=== PATIENT | female | born 1955 | race Caucasian/White ===

== ENCOUNTER 2016-08-09 05:37 | Outpatient (CLI) | payer MEDICARE ==
[~2016-08-09] VITALS: Ht 160 cm; Wt 70.7 kg
[2016-08-09] MEDS ORDERED: FENOFIBRATE160 MG (06:12)
[2016-08-09] MEDS ORDERED: CYCLOBENZAPRINE10 MG (06:12)
[2016-08-09] MEDS ORDERED: METOPROLOL TART50 MG PO (06:13)
[2016-08-09] MEDS ORDERED: SYNTHROID75 MCG (06:13)
[2016-08-09] MEDS ORDERED: FLOVENT DI50 MCG/DIS (06:13)
[2016-08-09] MEDS ORDERED: PRINIVIL20 MG (06:13)
[2016-08-09] MEDS ORDERED: PROAIR HFA8.5 GM (06:14)
[2016-08-09] MEDS ORDERED: OMEPRAZOLE20 M1 (06:14)
[2016-08-09] MEDS ORDERED: ZOCOR40 MG (06:14)
[2016-08-09] MEDS ORDERED: OMEPRAZOLE40 MG PO (06:14)
[2016-08-09] MEDS ORDERED: VENTOLIN HFA18 GM (06:15)
[2016-08-09] MEDS ORDERED: COUMADIN5 MG (06:15)
[2016-08-09] MEDS ORDERED: AMBIEN10 MG (06:15)
[2016-08-09] MEDS ORDERED: ULTRAM50 MG (06:15)
[2016-08-09 06:54] LABS: BASOPHILS 0.3 % (0.0-2.0); EOSINOPHILS 1.2 % (0-7); HEMATOCRIT 38.3 % (36.0-48.0); HEMOGLOBIN 12.4 g/dL (12-16); IMMATURE GRANULOCYTES 0.4 % (0-5); LYMPHOCYTES 36.1 % (15-50); MCH 29.9 pg (26.0-34.0); MCHC 32.4 g/dL (31.0-37.0); MCV 92.3 fL (80.0-100.0); MEAN PLATELET VOLUME 10.8 fL (7.4-10.4); MONOCYTES 10.1 % (2-11); NEUTROPHILS 51.9 % (40-80); PLATELET COUNT 288 10x3/uL (130-400); RBC 4.15 10x6/uL (4.00-5.40); RDW 14.4 % (11.5-14.5); WBC 7.3 10x3/uL (4.8-10.8)
[2016-08-09 07:03] LABS: ANION GAP 14.3 mmol/L (8-16); CALCIUM 9.8 mg/dL (8.5-10.1); CARBON DIOXIDE 24.5 mmol/L (21.0-32.0); POTASSIUM - SERUM 3.8 mmol/L (3.5-5.1)
[2016-08-09 07:13] VITALS: BP 119/69; Ht 160 cm; Wt 70.7 kg
[2016-08-09 07:25] LABS: APTT 35.8 SECONDS (22.8-39.4); INR 1.29 (0.85-1.17)
--- NOTE | 2016-08-09 07:45 | NUR ---
0744 ABNORMAL PT-16.0 INR-1.29 CALLED TO Velasquez GLASS R.N.
--- NOTE | 2016-08-09 10:21 | NUR ---
1020 C/O PAIN ON INSPIRATION. RATED 10. PAIN MED GIVEN
--- NOTE | 2016-08-09 11:06 | NUR ---
1100 CXR TAKEN; PAIN RATED 3
--- NOTE | 2016-08-09 12:50 | NUR ---
1250 CXR REPORT RECEIVED; NO PNEUMO PATIENT GETTING DRESSED
--- NOTE | 2016-08-09 13:12 | NUR ---
1300 DISCHARGE INSTRUCTIONS REVIEWED WITH PATIENT; VERBALIZED UNDERSTANDING
== END 2016-08-09 13:00 | disposition home or self-care (01) ==
LOC: D.OPS 05:37 → D.CT 08:00 → D.OPS 13:00
PROVIDERS: Radiology Diagnostic Radiology
DX: C38.3 Malignant neoplasm of mediastinum, part unspecified (principal)

== ENCOUNTER → 2016-08-23 16:39 | Outpatient (CLI) | payer MEDICARE ==
[2016-08-09 07:13] VITALS: BMI 27.6
[~2016-08-23 16:39] MED LIST: AMBIEN10 MG; BACTRIM DS TABL1 TAB PO; COUMADIN5 MG; CYCLOBENZAPRINE10 MG; FENOFIBRATE160 MG; FLOVENT DI50 MCG/DIS; HYDROCODON-ACE1 EAC7 PO; METOPROLOL TART50 MG PO; OMEPRAZOLE20 M1; OMEPRAZOLE40 MG PO; PRINIVIL20 MG; PROAIR HFA8.5 GM; SYNTHROID75 MCG; ULTRAM50 MG; VENTOLIN HFA18 GM; ZOCOR40 MG
== END | disposition home or self-care (01) ==
LOC: D.MAMMO 08:45
DX: N63 Unspecified lump in breast (principal)

== ENCOUNTER 2016-09-27 09:31 | Day surgery (SDC) | payer MEDICARE ==
[~2016-09-27] VITALS: Ht 160 cm; Wt 70.8 kg
[~2016-09-27 09:31] MED LIST changes: -BACTRIM DS TABL1 TAB PO; -HYDROCODON-ACE1 EAC7 PO
[2016-09-27 10:38] LABS: BASOPHILS 0.4 % (0.0-2.0); EOSINOPHILS 1.3 % (0-7); IMMATURE GRANULOCYTES 0.5 % (0-5); LYMPHOCYTES 30.3 % (15-50); MCH 28.7 pg (26.0-34.0); MCHC 31.6 g/dL (31.0-37.0); MCV 90.9 fL (80.0-100.0); MEAN PLATELET VOLUME 10.4 fL (7.4-10.4); MONOCYTES 9.1 % (2-11); NEUTROPHILS 58.4 % (40-80); RBC 4.18 10x6/uL (4.00-5.40); RDW 15.3 % (11.5-14.5); WBC 10.8 10x3/uL (4.8-10.8)
[2016-09-27 10:50] LABS: APTT 32.7 SECONDS (22.8-39.4); INR 1.16 (0.85-1.17); PROTIME 14.7 SECONDS (11.6-15.0)
[2016-09-27 11:10] LABS: PLATELET COUNT 363 10x3/uL (130-400)
[2016-09-27 11:16] LABS: ANION GAP 14.6 mmol/L (8-16); CALCIUM 9.6 mg/dL (8.5-10.1); CARBON DIOXIDE 24.9 mmol/L (21.0-32.0); CREATININE - SERUM 0.9 mg/dL (0.6-1.3); POTASSIUM - SERUM 4.5 mmol/L (3.5-5.1)
[2016-09-27 11:53] VITALS: BP 94/64; Ht 160 cm; Wt 70.8 kg
--- NOTE | 2016-09-27 14:56 | NUR ---
KAYLI OUT AT 1450, ZARA IN AT 1445
[2016-09-27] MEDS ORDERED: BACTRIM DS TABL1 TAB PO (15:55)
[2016-09-27] MEDS ORDERED: HYDROCODON-ACE1 EAC7 PO (15:55)
--- NOTE | 2016-09-27 17:30 | NUR ---
AMBULATES TO BATHROOM AND VOIDS LARGE AMOUNT IN TOILET. RIGHT HAND PIV DC'D WITH TIP INTACT, DRESSING IN PERSONAL CLOTHING
--- NOTE | 2016-09-27 17:50 | NUR ---
DISCHARGE INSTRUCTIONS REVIEWED WITH PATIENT. DISCHARGED HOME VIA WHEELCHAIR TO PRIVATE VEHICLE WITH FRIEND
--- NOTE | 2016-09-27 21:24 | OP ---
PATIENT NAME: EDGAR NEGRON MEDICAL RECORD: [id number] :57 LOCATION:D.OPS ADMISSION DATE: SURGEON: GABE HOUSER MD DATE OF OPERATION: 09/27/2016 SURGEON: Gabe Houser MD PREOPERATIVE DIAGNOSES: 1. Lung cancer. 2. Mediastinal mass. 3. Supraclavicular mass. POSTOPERATIVE DIAGNOSES: 1. Lung cancer. 2. Mediastinal mass. 3. Supraclavicular mass. PROCEDURE PERFORMED: 1. Insertion of a tunneled left subclavian PowerPort with subcutaneous port. 2. Immediate interpretation of fluoroscopy. 3. Right supraclavicular incisional biopsy. 4. Core needle biopsy of right supraclavicular mass. ANESTHESIA: General. COMPLICATIONS: None. SPECIMENS: Right supraclavicular incisional biopsy. ESTIMATED BLOOD LOSS: 30 cc. COMPLICATIONS: None. Case was clean. OPERATIVE COURSE: After consent was obtained, the patient was taken to the operating room and placed in supine position on the operating table. Next, general anesthesia was given via endotracheal intubation. After a timeout was performed that confirmed the correct patient and procedure, the right and left chest and neck were prepped and draped in typical sterile fashion. A 20 cc of local anesthetic were injected in the left chest wall. External landmarks were identified. The left subclavian vein was cannulated on the first pass. Under fluoroscopy, a guidewire was placed in the needle and advance to the atriocaval junction. The needle was removed. The skin incision was then made with a 15 blade scalpel. Dissection continued to the level of the pectoralis fascia using electrocautery. Next, the dilator and breakaway sheath were passed over the wire in a standard Seldinger fashion under direct fluoroscopy. The dilator and wire were removed. The catheter was advanced through the breakaway sheath and advanced to the atriocaval junction under direct fluoroscopic guidance. This time, the breakaway sheath was removed. The port was secured to the pectoralis fascia using interrupted 2-0 Prolene suture. The port was accessed, but was aspirated and flushed with 30 cc of saline, next with 5000 units of heparin. The wound was closed in several layers. The tissue was closed with 3-0 Vicryl, superficial layer was closed with 3-0 Vicryl. The skin was closed with 4-0 Monocryl, Mastisol and Steri-Strips. At this time, the wound was covered with sterile Tegaderm dressings. An incision was made over the large supraclavicular OPERATIVE REPORT [id number] EDGAR NEGRON mass. The right was easily palpable and local anesthetic was injected. An incision was made over the mass. Dissection continued down the level to the subcutaneous tissue with electrocautery. The strap muscles were identified. The mass was posterior to the strap muscles. The mass was unable to be circumferentially dissected, it was densely adherent to all surrounding tissues. Once we gained adequate exposure of the anterior surface of the mass and incisional biopsy was taken, which is approximately 3 cm in length, but 3 cm in width and 3 cm in depth. It was sent for both frozen section and permanent pathology. Initial report was of metastatic origin nonsmall cell lung CA ____ squamous features. At this time, multiple core needle biopsies were taken of the mass and sent for permanent pathology. Adequate hemostasis was obtained with electrocautery and Frankie. The wound was closed in multiple layers again deep layer was closed with 3-0 Vicryl sutures, superficial layer was closed with 3-0 Vicryl suture. The skin was closed with 4-0 nylon. At the end of the case, all needle and instrument counts were correct. No complications occurred. The patient was extubated and transferred to the PACU in stable condition. TRANSINT:[id number] Voice Confirmation ID: [id number] DOCUMENT ID: [id number] GABE HOUSER MD at 2124 CC: [id number] DICTATION DATE: 09/27/16 155 PLAQUE MAKER: 09/27/162020 [facility] 09/27/16 [place] [id number] [place] [id number]
== END 2016-09-27 17:50 | disposition home or self-care (01) ==
LOC: D.OPS 09:31
PROVIDERS: Anesthesiology
DX: C34.90 Malignant neoplasm of unspecified part of unspecified bronchus or lung (principal); C77.0 Secondary and unspecified malignant neoplasm of lymph nodes of head, face and neck

== ENCOUNTER 2016-11-18 07:54 | Emergency (ER) | payer MEDICARE ==
[2016-09-27 11:53] VITALS: BMI 27.6
[~2016-11-18 07:54] MED LIST changes: +BACTRIM DS TABL1 TAB PO; +HYDROCODON-ACE1 EAC7 PO
[2016-11-18 08:29] LABS: BASOPHILS 0.9 % (0-2); EOSINOPHILS 1.5 % (0-7); HEMATOCRIT 30.5 % (36.0-48.0); HEMOGLOBIN 9.5 g/dL (12-16); IMMATURE GRANULOCYTES 0.2 % (0-5); LYMPHOCYTES 35.9 % (15-50); MCH 27.5 pg (26.0-34.0); MCHC 31.1 g/dL (31.0-37.0); MCV 88.4 fL (80.0-100.0); MEAN PLATELET VOLUME 10.8 fL (7.4-10.4); MONOCYTES 13.6 % (2-11); NEUTROPHILS 47.9 % (40-80); PLATELET COUNT 388 10x3/uL (130-400); RBC 3.45 10x6/uL (4.00-5.40); RDW 17.1 % (11.5-14.5); WBC 9.3 10x3/uL (4.8-10.8)
[2016-11-18 08:45] LABS: ALBUMIN 2.2 g/dL (3.4-5.0); ANION GAP 16.9 mmol/L (8-16); BILIRUBIN - TOTAL 0.48 mg/dL (0.2-1.3); CALCIUM 9.7 mg/dL (8.5-10.1); CARBON DIOXIDE 26.3 mmol/L (21.0-32.0); CREATININE - SERUM 0.9 mg/dL (0.6-1.3); POTASSIUM - SERUM 3.2 mmol/L (3.5-5.1); PROTEIN - SERUM 8.6 g/dL (6.4-8.2)
[2016-11-18 08:48] LABS: TROPONIN-I 0.04 ng/mL (0.000-0.060)
== END 2016-11-18 11:21 | disposition home or self-care (01) ==
LOC: D.ER 07:54
PROVIDERS: Emergency Medicine
DX: J44.1 Chronic obstructive pulmonary disease with (acute) exacerbation (principal); C34.90 Malignant neoplasm of unspecified part of unspecified bronchus or lung; I10 Essential (primary) hypertension; E03.9 Hypothyroidism, unspecified; R00.0 Tachycardia, unspecified

== ENCOUNTER 2016-11-23 10:58 | Inpatient (IN) | payer MEDICARE ==
[~2016-11-23] VITALS: Ht 160 cm; Wt 58.4 kg
--- NOTE | ~2016-11-23 | CN ---
PATIENT NAME:EDGAR HOUGH MEDICAL RECORD: [id number] : 57 LOCATION:D.MS [id number] ADMIT DATE: 11/23/16 ACCOUNT: [id number] CONSULTING PHYSICIAN: SARA WELSL MD REFERRING PHYSICIAN: RONALD LUU MD DATE OF CONSULTATION: 11/24/2016 CONSULT REQUESTING PHYSICIAN: Ronald Luu MD. REASON FOR CONSULTATION: Dyspnea, COPD exacerbation and hemoptysis. HISTORY OF PRESENT ILLNESS: Ms. Hough is a 61-year-old female who was diagnosed in August with a stage III nonsmall cell carcinoma of the lung. She is getting chemotherapy by Dr. Dubois. According to the patient, for the last few days, she is sick and she has shortness of breath with mild exertion. She was also feverish. She also did have blood-tinged sputum for the last 1 month. It is not getting any worse. Sometimes it is pinkish, sometimes it is fresh blood noted on the tissue paper. Denies any chest pain. REVIEW OF SYSTEMS: Mainly in the history of present illness. PAST MEDICAL HISTORY: 1. COPD. 2. Stage III nonsmall cell carcinoma of the lung. 3. Gastroesophageal reflux disease. 4. History of Chu's Palsy. 5. Hypothyroidism. 6. History of pneumonia. 7. History of angina. PAST SURGICAL HISTORY: 1. She has a lung biopsy. 2. She has a Laser and LEEP surgery. ALLERGIES: There are no known drug allergies. PRESENT MEDICATIONS: [employer] was reviewed. PERSONAL AND SOCIAL HISTORY: The patient still an everyday smoker. She is a nondrinker. FAMILY HISTORY: Significant for cardiovascular disease and diabetes. PHYSICAL EXAMINATION: GENERAL: The patient is now lying comfortably. She is not in acute distress. VITAL SIGNS: The blood pressure is 113/56, pulse is 111, respirations 18, temperature is 98.8 and SpO2 is 96% on 2 liters nasal cannula. HEENT: Conjunctivae pink, sclerae nonicteric. NECK: Supple, no JVD. CHEST: There is prolonged expiration with wheezing. HEART: Rhythm regular, normal sound, no murmur. ABDOMEN: Soft, bowel sounds present. No hepatosplenomegaly. RECTAL: Deferred. EXTREMITIES: No cyanosis, no clubbing and no pedal edema. SKIN: Warm, normal turgor. CONSULT REPORT [id number] EDGAR HOUGH CENTRAL NERVOUS SYSTEM: The patient is awake and alert. There are no obvious cranial nerve abnormality. The gait was not tested. IMAGING DATA: Chest radiograph, there is fullness in the right paratracheal region, which is unchanged compared to the chest x-ray on November 13, there is no infiltrate. LABORATORY DATA: CBC: The WBC is 13.9, hemoglobin 9.7 and hematocrit 31. The repeat hematocrit is 24.9. Chemistry: Sodium 138, potassium 3.1, BUN is 12 and creatinine 0.8. IMPRESSION: 1. Acute exacerbation of chronic obstructive pulmonary disease. 2. Tracheobronchitis. 3. Hemoptysis, most likely secondary to cancer of the lung with associated tracheobronchitis, less likely vasculitis. 4. Stage IIIA nonsmall cell carcinoma of the lung. 5. Anemia. 6. Hypokalemia. 7. Tobacco dependence syndrome. 8. Gastroesophageal reflux disease. RECOMMENDATION: 1. Start her on Xopenex and ipratropium nebulizer. Add Brovana and budesonide nebulizer. Start methylprednisolone IV. Continue Levaquin. Racemic epinephrine nebulizer q.4 hourly p.r.n. 2. Mucinex DM and Tessalon Perles. 3. Followup labs and chest radiograph in the morning. Dr. Luu, thank you for involving me in the care of Ms. Hough. Agree with the blood transfusion. TRANSINT:[id number] Voice Confirmation ID: [id number] DOCUMENT ID: [id number] SARA WELLS MD CC: [id number] DICTATION DATE: 11/24/16 161 REPLANTING MACHINE CREWMAN: 11/25/16 0015 ADM IN [place] [id number] [place] [address]
[~2016-11-23 10:58] MED LIST changes: -AMBIEN10 MG; +AMBIEN10 MG PO; -COUMADIN5 MG; +COUMADIN5 MG PO; -CYCLOBENZAPRINE10 MG; +CYCLOBENZAPRINE10 MG PO; -FENOFIBRATE160 MG; +FENOFIBRATE160 MG PO; -OMEPRAZOLE20 M1; +OMEPRAZOLE20 M1 PO; -PRINIVIL20 MG; +PRINIVIL20 MG PO; -PROAIR HFA8.5 GM; +PROAIR HFA8.5 GM INH; -SYNTHROID75 MCG; +SYNTHROID75 MCG PO; -ULTRAM50 MG; +ULTRAM50 MG PO; -ZOCOR40 MG; +ZOCOR40 MG PO
[2016-11-23 11:44] LABS: BASOPHILS 0.1 % (0-2); EOSINOPHILS 0.3 % (0-7); HEMOGLOBIN 9.7 g/dL (12-16); IMMATURE GRANULOCYTES 0.3 % (0-5); LYMPHOCYTES 15.9 % (15-50); MCH 28.1 pg (26.0-34.0); MCHC 31.3 g/dL (31.0-37.0); MCV 89.9 fL (80.0-100.0); MEAN PLATELET VOLUME 9.7 fL (7.4-10.4); MONOCYTES 8.1 % (2-11); NEUTROPHILS 75.3 % (40-80); RBC 3.45 10x6/uL (4.00-5.40); RDW 18.6 % (11.5-14.5); WBC 13.9 10x3/uL (4.8-10.8)
[2016-11-23 11:54] LABS: PLATELET COUNT 309 10x3/uL (130-400)
[2016-11-23 12:01] LABS: ALBUMIN 2.2 g/dL (3.4-5.0); ANION GAP 13.7 mmol/L (8-16); BILIRUBIN - TOTAL 0.51 mg/dL (0.2-1.3); CALCIUM 9.6 mg/dL (8.5-10.1); CARBON DIOXIDE 28.3 mmol/L (21.0-32.0); CREATININE - SERUM 0.9 mg/dL (0.6-1.3); PROTEIN - SERUM 8.5 g/dL (6.4-8.2)
[2016-11-23 12:33] LABS: APTT 58.3 SECONDS (22.8-39.4); INR 2.69 (0.85-1.17); PROTIME 28.8 SECONDS (11.6-15.0)
[2016-11-23 15:33] LABS: APPEARANCE CLEAR (CLEAR); BILIRUBIN NEGATIVE (NEGATIVE); COLOR YELLOW (YELLOW); GLUCOSE NEGATIVE (NEGATIVE); KETONE NEGATIVE (NEGATIVE); LEUKOCYTE ESTERASE TRACE (NEGATIVE); NITRITE NEGATIVE (NEGATIVE); PROTEIN TRACE mg/dL (NEGATIVE); UROBILINOGEN NORMAL (NORMAL)
[2016-11-23 15:35] LABS: BACTERIA FEW /hpf (NONE SEEN); EPITHELIAL CELLS 0-5 /hpf (0-5); RED CELLS - URINE 0-5 /hpf (0-5); WHITE CELLS - URINE 0-5 /hpf (0-5)
[2016-11-23 17:01] LABS: CKMB 6.9 U/L (0.0-3.6); CREATINE KINASE 50 UL (21-215)
[2016-11-23 17:02] LABS: TROPONIN-I 0.074 ng/mL (0.000-0.060)
[2016-11-23] MEDS ORDERED: HYSINGLA ER20 MG PO (17:56)
[2016-11-23] MEDS ORDERED: PULMICORT0.5 MG/21 INH (18:01)
[2016-11-23] MEDS ORDERED: FUROSEMIDE20 MG PO (18:05)
[2016-11-23] MEDS ORDERED: CELEXA10 MG PO (18:05)
[2016-11-23] MEDS ORDERED: PHENERGAN25 M1 PO (18:06)
[2016-11-23] MEDS ORDERED: ZOFRAN4 MG PO (18:06)
[2016-11-23 18:08] VITALS: BP 115/67; BMI 24.3
[2016-11-23 19:00] VITALS: BP 121/66
[2016-11-23 22:33] LABS: CKMB 8.2 U/L (0.0-3.6); CREATINE KINASE 50 UL (21-215)
[2016-11-23 22:35] LABS: TROPONIN-I 0.081 ng/mL (0.000-0.060)
[2016-11-24] VITALS (14 sets, daily range): BP systolic 94–177; BP diastolic 55–100; Ht 160 cm; Wt 58.4 kg
--- NOTE | 2016-11-24 00:31 | NUR ---
2000)DR CALDERON HERE. NO NEW ORDERS REC'D.GROSSLY CONGESTED UPPER AIRWAY WITH CRACKLES. SYAYES DON'T CLOSE MY DOOR I COULD BE LYING IN HERE BECAUSE IT TAKES YALL 3 HOURS TO ANSWER A CALL LITE.
--- NOTE | 2016-11-24 02:00 | NUR ---
PT IN BED WITH NO DISTRESS. RESPIRATIONS EVEN AND UNLABORED. SIDE RAILS UP X 2. BED IS IN LOWEST POSITION. CALL LIGHT IS WITHIN REACH.
[2016-11-24 05:09] LABS: BASOPHILS 0.2 % (0-2); EOSINOPHILS 1.9 % (0-7); HEMATOCRIT 24.9 % (36.0-48.0); IMMATURE GRANULOCYTES 0.3 % (0-5); MCH 27.9 pg (26.0-34.0); MCHC 30.5 g/dL (31.0-37.0); MCV 91.5 fL (80.0-100.0); MEAN PLATELET VOLUME 10.4 fL (7.4-10.4); MONOCYTES 7.8 % (2-11); NEUTROPHILS 66.8 % (40-80); PLATELET COUNT 251 10x3/uL (130-400); RDW 18.4 % (11.5-14.5)
[2016-11-24 05:18] LABS: HEMOGLOBIN 7.6 g/dL (12-16); RBC 2.72 10x6/uL (4.00-5.40); WBC 9.9 10x3/uL (4.8-10.8)
[2016-11-24 05:20] LABS: INR 3.45 (0.85-1.17); PROTIME 35.1 SECONDS (11.6-15.0)
[2016-11-24 05:41] LABS: ALBUMIN 1.6 g/dL (3.4-5.0); ALKALINE PHOSPHATASE 114 U/L (46-116); ALT (SGPT) 10 U/L (10-68); CALC OSMOLALITY 275 mosm/kg (275-300); CALCIUM 8.6 mg/dL (8.5-10.1); CARBON DIOXIDE 26.5 mmol/L (21.0-32.0); CHLORIDE - SERUM 103 mmol/L (98-107); CKMB 6.2 U/L (0.0-3.6); CREATINE KINASE 39 UL (21-215); CREATININE - SERUM 0.8 mg/dL (0.6-1.3); GLUCOSE 92 mg/dL (74-106); POTASSIUM - SERUM 3.1 mmol/L (3.5-5.1); PROTEIN - SERUM 6.4 g/dL (6.4-8.2); SODIUM 138 mmol/L (136-145); UREA NITROGEN 12 mg/dL (7-18); eGFR NON AFRICAN AMERICAN 77 mL/min (90-120)
--- NOTE | 2016-11-24 07:38 | NUR ---
SLEEPING AT THIS TIME WITH RESPIRATIONS EVEN AND NON LABORED. DOOR OPEN PER PT'S REQUEST. CALL LIGHT IN REACH. BED IN LOWEST POSITION WITH WHEELS LOCKED AND SRX2. WILL CONTINUE WITH PLAN OF CARE.
--- NOTE | 2016-11-24 09:34 | NUR ---
SCHEDULED MEDICATIONS ADMINISTERED AT THIS TIME. ASSESSMENT PERFORMED PER FLOWSHEET. NOTIFIED KYMBERLYJENNIFER OF PT'S LUNG SOUNDS SO THAT SHE COULD ASSESS PT AND NEED FOR LASIX. CALL LIGHT IN REACH. WILL CONTINUE WITH PLAN OF CARE. REMAINS NPO FOR CTA OF THE CHEST. OXYGEN ON 2L VIA NC.
--- NOTE | 2016-11-24 10:21 | NUR ---
Patient Name: EDGAR NEGRON Admission Status: ER Accout number: [id number] Admission Date: 11-23-2016 : 1955 Admission Diagnosis: Attending: KELLI Current LOS: 1 Anticipated DC Date: 11-29-2016 Planned Disposition: Home with Home Health Primary Insurance: MEDICARE A & B Discharge Planning Comments: CM MET WITH PATIENT REGARDING D/C NEEDS AND PLANS. PATIENT STATED HER FRIEND (ABE) WILL DRIVE HER HOME AT DISCHARGE. PATIENT STATED THERE ARE 3 STEPS TO ENTER HER HOME AND NO STAIRS INSIDE. PATIENT STATED SHE HAS BEEN INDEPENDENT WITH HER CARE AND HAS A WALKER, CANE, PORTABLE O2, NEBULIZER AND O2 24/7 AT 2L. PATI[facility] PATIENTS PCP IS DR. MCCLELLAND IN [facility] AND USES [facility] FOR HER PHARMACY. PATIENT SIGNED THE [facility]NE FORM FOR [facility] WHEN DISCHARGED. CM WILL CONTINUE TO FOLLOW PATIENT WITH D/C NEEDS AND PLANS. PCP DR. MCCLELLAND [facility] - [phone] ABE FORTE (FRIEND) [phone] Used [employer] Yard Worker: Shannan Motta Is the patient Alert and Oriented? Yes 0 * How many steps to enter\exit or inside your home? 3 W/RAILS 0 * PCP DR. MCCLELLAND IN [facility] 0 * Pharmacy [facility] 0 * Preadmission Environment Home Alone 0 * ADLs Independent 0 * Equipment Cane Nebulizer Oxygen Walker 0 * Other Equipment PORTABLE O2 0 * List name and contact numbers for known caregivers / representatives who currently or will assist patient after discharge: ABE FORTE (FRIEND) [phone] 0 * Community resources currently utilized None 0 * Additional services required to return to the preadmission environment? Yes 0 * Can the patient safely return to the preadmission environment? Yes 0 * Has this patient been hospitalized within the prior 30 days at any hospital? No 0 Grand Total: 0
--- NOTE | 2016-11-24 12:30 | NUR ---
LEFT CHEST PORT ACCESSED WITH 20G 1 INCH MELGAR NEEDLE X1 ATTEMPT IN STERILE FASHION. PT TOLERATED WITHOUT COMPLAINTS. CALL LIGHT IN REACH, WILL CONTINUE WITH PLAN OF CARE.
--- NOTE | 2016-11-24 13:45 | NUR ---
FIRST UNIT OF PRBC'S INITIATED AT THIS TIME AT 50ML/HR. VITAL SIGNS INITIATED PER PROTOCOL. FAMILY AT BEDSIDE. WILL CONTINUE TO MONITOR PT CLOSELY.
--- NOTE | 2016-11-24 16:45 | NUR ---
BLOOD TRANSFUSION COMPLETE AT THIS TIME WITH TOTAL OF 355 ML OF INFUSED BLOOD TOTAL. VITAL SIGNS REMAIN STABLE WITH PT TACHYCARDIC AT 105. DENIES NEEDS. LUNG SOUNDS WET AND AUDIBLE WITHOUT A STETHESCOPE. OXYGEN ON 3L VIA NC WITH SATURATION 95%. WILL ADMINISTER LASIX IN BETWEEN UNITS PRESCRIBED. CALL LIGHT IN REACH. WILL CONTINUE WITH PLAN OF CARE.
--- NOTE | 2016-11-24 17:17 | NUR ---
20MG OF LASIX GIVEN PER ORDER AFTER FIRST UNIT OF PRBC'S PER DR CALDERON'S ORDER. LEFT CHEST PORT REMAINS PATENT. PT DENIES NEEDS AT THIS TIME. CALL LIGHT IN REACH, WILL CONTINUE WITH PLAN OF CARE.
--- NOTE | 2016-11-24 19:30 | NUR ---
REC'D PATIENT LYING IN BED. ALERT AND ORIENTED X4. NO DISTRESS NOTED. DENIED PAIN AT THIS TIME. DENIED FUTHER NEEDS. WILL ADMINISTER PM MEDS PRESCRIBED. INSTRUCTED TO CALL IF NEEDED ANYTHING. BED LOW, LOCKED CALL LIGHT IN REACH.
--- NOTE | 2016-11-24 22:00 | NUR ---
STARTED PATIENT'S BLOOD TRANSFUSION. PATIENT IS TOLERATING WELL. VITALS STABLE. PATIENT'S BED IN THE LOWEST POSITION AND CALL LIGHT WITHIN REACH. ENCOURAGED THE PATIENT TO CALL IF SHE HAS FURTHER NEEDS.
--- NOTE | 2016-11-24 22:17 | NUR ---
WENT TO LAB AND GOT OTHER UNIT OF BLOOD TO HANG. HILDA WILKES, HUNG BLOOD AND IS CURRENTLY TRANSFUSING. WILL CONT TO MONITOR THROUGHOUT THE NIGHT. NO DISTRESS NOTED. INSTRUCTED TO CALL IF NEEDED ANYTHING. BED LOW, LOCKED, CALL LIGHT IN REACH.
[2016-11-25] VITALS (12 sets, daily range): BP systolic 126–181; BP diastolic 70–96
--- NOTE | 2016-11-25 03:50 | NUR ---
PATIENT IS ASLEEP. NO DISTRESS NOTED. WILL CONT TO MONITOR THROUGHOUT THE NIGHT. BED LOW, LOCKED CALL LIGHT IN REACH.
[2016-11-25 05:39] LABS: BASOPHILS 0 % (0-2); EOSINOPHILS 0.1 % (0-7); IMMATURE GRANULOCYTES 0.7 % (0-5); LYMPHOCYTES 9.5 % (15-50); MCH 28.5 pg (26.0-34.0); MCHC 32.1 g/dL (31.0-37.0); MEAN PLATELET VOLUME 10.5 fL (7.4-10.4); MONOCYTES 1.2 % (2-11); NEUTROPHILS 88.5 % (40-80); PLATELET COUNT 281 10x3/uL (130-400); RDW 16.6 % (11.5-14.5); WBC 10.8 10x3/uL (4.8-10.8)
[2016-11-25 05:42] LABS: HEMOGLOBIN 10.9 g/dL (12-16); RBC 3.82 10x6/uL (4.00-5.40)
[2016-11-25 05:45] LABS: INR 2.48 (0.85-1.17); PROTIME 26.9 SECONDS (11.6-15.0)
[2016-11-25 05:52] LABS: ALBUMIN 1.9 g/dL (3.4-5.0); ALKALINE PHOSPHATASE 150 U/L (46-116); BILIRUBIN - TOTAL 0.56 mg/dL (0.2-1.3); CALCIUM 9.5 mg/dL (8.5-10.1); CARBON DIOXIDE 28.6 mmol/L (21.0-32.0); CHLORIDE - SERUM 101 mmol/L (98-107); CREATININE - SERUM 0.8 mg/dL (0.6-1.3); POTASSIUM - SERUM 3.6 mmol/L (3.5-5.1); PROTEIN - SERUM 7.7 g/dL (6.4-8.2); SODIUM 137 mmol/L (136-145); UREA NITROGEN 13 mg/dL (7-18); eGFR NON AFRICAN AMERICAN 77 mL/min (90-120)
[2016-11-25 05:54] LABS: ALT (SGPT) 13 U/L (10-68); CALC OSMOLALITY 277 mosm/kg (275-300); GLUCOSE 168 mg/dL (74-106)
--- NOTE | 2016-11-25 07:55 | NUR ---
AWAKE AND ALERT. ORIENTED X3. NO C/O AT THIS TIME. LUNGS HAVE CRACKLES AND WHEEZES THROUGHOUT. PATIENT REPORTS OCCASSIONALLY PRODUCTIVE COUGH. SKIN IS INTACT WITHOUT REDNESS. SL TO RIGHT FOREARM IS PATENT WITHOUT REDNESS AT INSERTION SITE. LEFT PORT PATENT WITHOUT REDNESS AT INSERTION SITE. O2 SAT AT 90% RT IS WORKING TO IMPROVE THIS. DENIES NEEDS.
--- NOTE | 2016-11-25 10:07 | NUR ---
ASSISTED WITH BATH AND LINENS CHANGED PER STAFF. DENIES NEEDS.
--- NOTE | 2016-11-25 11:20 | NUR ---
16F PALOMO PLACED AT THIS TIME USING STERILE TECHNIQUE. ENTIRE CONTENTS OF KIT USED. PT TOLERATED WELL. BED IN LOW POSITION AND CALL LIGHT WITHIN REACH. WILL CONTINUE TO MONITOR.
--- NOTE | 2016-11-25 15:40 | NUR ---
PT ARRIVED TO UNIT VIA BED, ACCOMPANIED BY HOSPITAL STAFF. PT AAOX4 SITTING UP IN BED. 13L OXIMIZER.
--- NOTE | 2016-11-25 15:51 | NUR ---
REPORT CALLED TO WENDY SWARTZ RN IN ICU. ALL QUESTIONS ANSWERED. TRANSFERRED TO ROOM 2312 VIA BED. FAMILY AWARE OF TRANSFER.
--- NOTE | 2016-11-25 19:00 | NUR ---
LAYING IN BED. ORIENTED TO PERSON, TIME, AND PLACE. S1S2 AUSCULTATED. TELEMETRY SINUS TACHYCARDIA RATE OF 102. L SUBCLAVIAN IMPLANTED PORT IN PLACE, DRESSING INTACT, CLEAN, AND DRY NO REDNESS, SWELLING, OR EDEMA NOTED. R FOREARM SALINE LOCK PIV, PATENT, DRESSING ADHERED TO SKIN, CLEN AND DRY, NO REDNESS, SWELLING, OR EDEMA NOTED. SKIN IS PINK, WARM, AND DRY. HELIOX 70/30 VIA NC. ABLE TO MOVE UPPER AND LOWER EXTREMITIES WITHOUT A PROBLEM. PAIN RATED 0/10 ON A NUMERIC SCALE. BRUISES NOTED ON BOTH ARMS PT STATED "I'M ON COUMADIN," WHEN ASKED ABOUT THE BRUISING. PERIPHERAL PULSES PALPABLE IN UPPER AND LOWER EXTREMITIES. BED IN LOWEST POSITION. CALL LIGHT WITHIN REACH. DENIES FURTHER NEEDS AT THIS TIME.
--- NOTE | 2016-11-25 21:00 | NUR ---
LAYING IN BED AWAKE. NO CHANGES NOTED. WILL CONTINUE TO MONITOR. BED IN LOWEST POSITION. CALL LIGHT WITHIN REACH.
--- NOTE | 2016-11-25 23:00 | NUR ---
REASSESSMENT COMPLETE SEE FLOWSHEET FOR DETAILS. NO CHANGES NOTED. WILL CONTINUE TO MONITOR. CALL LIGHT WITHIN REACH. BED IN LOWEST POSITION.
[2016-11-26] VITALS (22 sets, daily range): BP systolic 120–165; BP diastolic 70–100
--- NOTE | 2016-11-26 01:00 | NUR ---
LAYING IN BED ASLEEP. WILL CONTINUE TO MONITOR.
--- NOTE | 2016-11-26 03:00 | NUR ---
LAYING IN BED. REASSESSMENT COMPLETE SEE FLOWSHEET FOR DETAILS. NO CHANGES NOTED. WILL CONTINUE TO MONITOR.
[2016-11-26 03:55] LABS: BASOPHILS 0.1 % (0-2); EOSINOPHILS 0 % (0-7); HEMATOCRIT 41.6 % (36.0-48.0); HEMOGLOBIN 13.5 g/dL (12-16); LYMPHOCYTES 5.9 % (15-50); MCHC 32.5 g/dL (31.0-37.0); MCV 89.3 fL (80.0-100.0); MEAN PLATELET VOLUME 10.4 fL (7.4-10.4); MONOCYTES 3.4 % (2-11); NEUTROPHILS 89.6 % (40-80); PLATELET COUNT 275 10x3/uL (130-400); RBC 4.66 10x6/uL (4.00-5.40); RDW 17.4 % (11.5-14.5); WBC 16.3 10x3/uL (4.8-10.8)
[2016-11-26 04:14] LABS: ANION GAP 13.1 mmol/L (8-16); BILIRUBIN - TOTAL 0.42 mg/dL (0.2-1.3); CALCIUM 9.4 mg/dL (8.5-10.1); CARBON DIOXIDE 28.5 mmol/L (21.0-32.0); POTASSIUM - SERUM 3.6 mmol/L (3.5-5.1); PROTEIN - SERUM 7.9 g/dL (6.4-8.2)
[2016-11-26 04:18] LABS: INR 1.65 (0.85-1.17); PROTIME 19.5 SECONDS (11.6-15.0)
--- NOTE | 2016-11-26 05:00 | NUR ---
LAYING IN BED SLEEPING. NO CHANGES NOTED. WILL CONTINUE TO MONITOR.
--- NOTE | 2016-11-26 06:16 | NUR ---
NO VISITORS IN ROOM. LAYING ASLEEP. WILL CONTINUE TO MONITOR. CALL LIGHT WITHIN REACH. BED IN LOWEST POSITION.
--- NOTE | 2016-11-26 10:59 | NUR ---
NUTRITION MONITORING & EVAL CHART REVIEWED. PT WITH VISITORS. CURRENTLY NPO FOR PROCEDURE. WILL PROVIDE DIET WHEN RESUMED. RD FOLLOWING
--- NOTE | 2016-11-26 19:30 | NUR ---
RECEIVED CARE OF PT, ASSESSMENT PER FLOWSHEET. PT ALERT AND ORIENTED WATCHING TV IN BED IN NO APPARENT DISTRESS, SOME TACHYPNEA NOTED WITH MINIMAL EXERTION, HR ST AT A RATE OF 114 ON CM, PPP, PALOMO CATH PATENT WITH CLEAR YELLOW URINE IN TUBING. ON 8L OXIMIZER, RHONCHI AND INSP/EXP WHEEZES AUSCULTATED BILATERALLY WITH DIMINISHED BASES. PT DENIES ANY NEEDS AT THIS TIME, CALL LIGHT IN REACH, BED LOW.
--- NOTE | 2016-11-26 22:03 | NUR ---
PT C/O BACK PAIN, PRN MORPHINE 2 MG ADMINISTERED VIA SIVP PER PT REQUEST. WILL MONITOR FOR DESIRED EFFECT.
--- NOTE | 2016-11-26 23:15 | NUR ---
REASSESSMENT PER FLOWSHEET, NO ACUTE CHANGES NOTED AT THIS TIME. PT DENIES ANY NEEDS, BED LOW, CONT POC.
[2016-11-27] VITALS (28 sets, daily range): BP systolic 104–197; BP diastolic 67–120
--- NOTE | 2016-11-27 00:24 | NUR ---
SMALL AMT OF URINE LEAKAGE AROUND PALOMO CATH NOTED. PARTIAL LINEN CHANGE AND PERICARE PROVIDED. PALOMO CATH FLUSHED AND STAT-FORD REPOSITIONED, TUBING IS PATENT AND GOOD FLOW OF URINE NOTED. WILL MONITOR CLOSELY.
--- NOTE | 2016-11-27 01:48 | NUR ---
PT RESTING IN BED WITH EYES CLOSED, VSS, CONT TO MONITOR.
--- NOTE | 2016-11-27 03:15 | NUR ---
REASSESSMENT PER FLOWSHEET. PT DENIES ANY NEEDS AT THIS TIME, IV LINE CHANGED PER PROTOCOL, POSITIONED FOR COMFORT, CALL LIGHT IN REACH AND BED LOW. VSS
[2016-11-27 04:29] LABS: BASOPHILS 0.1 % (0-2); EOSINOPHILS 0 % (0-7); HEMATOCRIT 34.2 % (36.0-48.0); HEMOGLOBIN 10.9 g/dL (12-16); LYMPHOCYTES 5.7 % (15-50); MCH 28.8 pg (26.0-34.0); MCHC 31.9 g/dL (31.0-37.0); MCV 90.2 fL (80.0-100.0); MEAN PLATELET VOLUME 10.1 fL (7.4-10.4); MONOCYTES 3.1 % (2-11); NEUTROPHILS 90.1 % (40-80); PLATELET COUNT 241 10x3/uL (130-400); RBC 3.79 10x6/uL (4.00-5.40); RDW 17.3 % (11.5-14.5); WBC 19.7 10x3/uL (4.8-10.8)
[2016-11-27 04:37] LABS: PROTIME 15.9 SECONDS (11.6-15.0)
[2016-11-27 04:39] LABS: INR 1.28 (0.85-1.17)
[2016-11-27 04:42] LABS: ALBUMIN 2.1 g/dL (3.4-5.0); ALKALINE PHOSPHATASE 117 U/L (46-116); ALT (SGPT) 16 U/L (10-68); BILIRUBIN - TOTAL 0.42 mg/dL (0.2-1.3); CALC OSMOLALITY 279 mosm/kg (275-300); CALCIUM 9.1 mg/dL (8.5-10.1); CARBON DIOXIDE 28.3 mmol/L (21.0-32.0); CHLORIDE - SERUM 100 mmol/L (98-107); CREATININE - SERUM 0.8 mg/dL (0.6-1.3); GLUCOSE 157 mg/dL (74-106); POTASSIUM - SERUM 3.5 mmol/L (3.5-5.1); PROTEIN - SERUM 7.4 g/dL (6.4-8.2); SODIUM 138 mmol/L (136-145); UREA NITROGEN 14 mg/dL (7-18); eGFR NON AFRICAN AMERICAN 77 mL/min (90-120)
--- NOTE | 2016-11-27 05:46 | NUR ---
AM LABS REVIEWED, NOTHING TO TREAT PER ELECTROLYTE PROTOCOL.
--- NOTE | 2016-11-27 07:00 | NUR ---
REC'D REPORT FROM OUTGOING RN - PT AA&OX 4 - C/O PAIN AT 9 - PM RN GAVE MORPHINE (SEE MAR) PT TAKED HYDROCODONE ER 20MG BID AT HOME - WILL REVIEW PAIN MANAGEMENT WITH MD Gena GOMEZ
--- NOTE | 2016-11-27 08:30 | NUR ---
ASSESSMENT COMPLETE - MEDICATIONS GIVEN - PT RESTING BUT CONTINUES TO C/O PAIN 9/10 IN BACK RADIATES UP BACK OF HEAD. WILL F/U WITH - CPOC
--- NOTE | 2016-11-27 09:58 | NUR ---
GAVE MORPINE FOR PAIN 03/06 - CPOC -
--- NOTE | 2016-11-27 10:12 | NUR ---
PT C/O PALOMO LEAKAGE - BATHED PT - CHANGED LINENS AND BED CLOTHES - CPOC
--- NOTE | 2016-11-27 11:15 | NUR ---
PT COUGHING - STATED COUGHED UP MUCUS - PT BECAME ANXIOUS, TACHYPNEIC 50s, TACHYCARDIC (170s) WITH COUPLING PVCs. PT C/O NOT ABLE TO BREATHE. RT AT BEDSIDE (SEE FLOWSHEET) - INSTRUCED PT TO ATTEMPT TO SLOW BREATHS. PT ATTEMPTED TO DEMONSTRATE. ALLEY CLEANER AT BEDSIDE FOR ASSISTANCE RT TREATMENT COMPLETED - PT's HR LOWER TO 140s - 1130 - CALLED DR. LUU INFORMED OF ABOVE - REC'D ORDER FOR IV LORAZEPAM FOR ANXIETY. ADMINISTERED (SEE MAR) 1145 - DR. LANTIGUA AT BEDSIDE - REVIEWED ABOVE WITH MD - REC'D ORDER FOR 5MG ZESTERIL NOW AND DAILY (0900) SEE AUG 1199 PT RESTING VITAL SIGNS MORE STABLE EXCEPT ELEVATED B/P. PTs HOME MEDICAITONS INCLUED METOPROLOL AND LISINORPIL.
--- NOTE | 2016-11-27 12:15 | NUR ---
DR. LUU ON UNIT FOR ASSESSMENT - ORDERS FOR METOPROLOL AND HYDORCODONE REC'D CPOC SPOUSE AT BEDSIDE - PT RESTING - CPOC
--- NOTE | 2016-11-27 13:50 | NUR ---
PT RESTING VSS - PAIN 10/04 - PT USING SUCTION YAUNKER WITH COUGHING. PT DENIES ANY CONCERNS AT THIS TIME - CPOC
--- NOTE | 2016-11-27 14:45 | NUR ---
PT RESTING IN BED - EYES CLOSED - RESPIRATIONS REG RATE AND RHTHYM - VSS - CPOC
--- NOTE | 2016-11-27 16:40 | NUR ---
I&O COMPLETED - PT ANXIOUS - GAVE 1ML LORAZAPAM IV - RT AT BEDSIDE FOR TREATMENT - PT ABLE TO TOLERATE RT THERAPY - CPOC
--- NOTE | 2016-11-27 16:52 | NUR ---
PT TOLERATING RT THERAPY WELL - CPOC
--- NOTE | 2016-11-27 17:19 | NUR ---
PT AT APPRX 50% OF DINNER TRAY - CPOC
--- NOTE | 2016-11-27 18:19 | NUR ---
MEDS GIVEN - CHANGED LINENS - PALOMO LEAKS - PLACED EXTRASORBS UNDER PT - PT AGREED TO NOTIFY THIS RN WHEN NEEDED - CPOC
--- NOTE | 2016-11-27 19:30 | NUR ---
Assessment complete. See flowsheet. Pt awake upon entrance and helped to sit up more in bed per request. Fan blowing on patient turned off face per request. Pt alert, oriented x4 and follows conversation with no neuro deficits noted. Pt SOB with conversation and movements with audible inspiratory/expiratory ronchi. Lung sounds diminishedwith ronchi present to auscultation. O2 set 10L oximizer and decreased slowly with SPO2 maintaining 96-97% to 7L oximizer. HR ST 130BPM with S1S2 auscultated. All peripheral pulses +2 with capillary refill <3 seconds. Right forearm 22g PIV site CDI no s/s infection saline locked. Pt left upper chest infusiport secure to IVF NS + 20meq KCL infusing @ 40cc/hr. ABdomen soft with BS present to all quadrants. Ventura catheter secure retrieving concentrated, yellow urine. Small amt leakage from ventura and absorb pad changed. Pt provided with 2 wet washcloths and icepack per request. Pt anxious. Ativan 1mg IVP administered. See MAR. Call light and bedside table remain within pt reach. CPOC.
--- NOTE | 2016-11-27 21:30 | NUR ---
Pt resting quietly with VSS. SPO2 98% on 7L Oximizer. No s/s pain or distress and allowed to continue resting undisturbed. Call light and bedside table remain within pt reach. CPOC.
--- NOTE | 2016-11-27 23:30 | NUR ---
Reassessment complete. See flowsheet. Pt sleeping and awakens easily to verbal stimulation with no neuro changes to note. O2 remains @ 7L Oximizer. Respirations shallow with ronchi auscultated to all lung alegria. HR ST 103BPM with S1S2 auscultated. All peripheral pulses remain +2 with capillary refill <3 seconds. Infusiport site remains CDI with NO IVF changes to note. BS +. Ventura remains secure. Absorb bad change completed from ventura leakage. Pt self-positioning for comfort and denies pain at this time. Room warmed per pt request. NO other changes to note. Call light and bedside table remain within pt reach. CPOC.
[2016-11-28] VITALS (24 sets, daily range): BP systolic 94–154; BP diastolic 65–113
--- NOTE | 2016-11-28 01:30 | NUR ---
Pt awakened for UDTX and denies further needs. VSS. Pt back to rest and continues to self-position for comfort. Call light and bedside table remain within pt reach> CPOC
--- NOTE | 2016-11-28 03:30 | NUR ---
Reassessment complete. See flowsheet. Pt awake upon entrance into room and anxious with respirations elevated. Pt calmed. O2 remains @ 7L Oximizer. Respirations shallow with ronchi auscultated to all lung alegria. HR ST 140bpm with S1S2 auscultated. All peripheral pulses remain +2 with capillary refill <3 seconds. Infusiport site remains CDI with NO IVF changes to note. BS +. Ventura remains secure. Absorb bad change completed from ventura leakage. Pt self-positioning for comfort and c/o pain to back. Morphine administered for pain. See MAR.
[2016-11-28 05:13] LABS: BASOPHILS 0 % (0-2); EOSINOPHILS 0 % (0-7); HEMATOCRIT 37.1 % (36.0-48.0); HEMOGLOBIN 11.6 g/dL (12-16); IMMATURE GRANULOCYTES 1.3 % (0-5); LYMPHOCYTES 3.4 % (15-50); MCH 28.8 pg (26.0-34.0); MCHC 31.3 g/dL (31.0-37.0); MCV 92.1 fL (80.0-100.0); MEAN PLATELET VOLUME 10.3 fL (7.4-10.4); MONOCYTES 2.6 % (2-11); NEUTROPHILS 92.7 % (40-80); PLATELET COUNT 239 10x3/uL (130-400); RBC 4.03 10x6/uL (4.00-5.40); RDW 17.3 % (11.5-14.5); WBC 24.2 10x3/uL (4.8-10.8)
[2016-11-28 05:30] LABS: INR 1.17 (0.85-1.17); PROTIME 14.8 SECONDS (11.6-15.0)
[2016-11-28 05:32] LABS: ALBUMIN 2.1 g/dL (3.4-5.0); ANION GAP 13.1 mmol/L (8-16); BILIRUBIN - TOTAL 0.8 mg/dL (0.2-1.3); CALCIUM 9.4 mg/dL (8.5-10.1); CARBON DIOXIDE 29.7 mmol/L (21.0-32.0); POTASSIUM - SERUM 3.8 mmol/L (3.5-5.1); PROTEIN - SERUM 7.5 g/dL (6.4-8.2)
--- NOTE | 2016-11-28 07:45 | NUR ---
ASSESSMENT COMPLETE. AAO X4. DENIES PAIN. S1S2 NOTED, RADIAL AND PEDAL PULSES PALP. NSR/SINUS TACHYCARDIA WHEN AWAKE. 7L OXYMISER. RUL, RLL, RML, LLL DIMINISHED. RUL, DEWAYNE RHONCHI. REPORTS FEELING "SHORT ON AIR." HYPOACTIVE BOWEL SOUNDS X4. GENERALIZED WEAKNESS. DECREASED APPETITE. NO EDEMA NOTED. SCD'S ON. LT CHEST IMPLANTED PORT PATENT. SEE FLOWSHEET FOR OTHER DETAILS.
--- NOTE | 2016-11-28 07:48 | OP ---
PATIENT NAME: EDGAR NEGRON MEDICAL RECORD: [id number] :57 LOCATION:[facility] D.2312 ADMISSION DATE:11/23/16 SURGEON: GABE HOUSER MD DATE OF OPERATION: 11/26/2016 SURGEON: Gabe Houser MD PREOPERATIVE DIAGNOSES: 1. Metastatic lung cancer. 2. Near obstructing tracheal mass. POSTOPERATIVE DIAGNOSES: 1. Metastatic lung cancer. 2. Near obstructing tracheal mass. PROCEDURE PERFORMED: Flexible bronchoscopy. ANESTHESIA: General. COMPLICATIONS: None. SPECIMENS: None. Case was contaminated. OPERATIVE COURSE: After consent was obtained, the patient was taken to the operating room and placed in supine position. At this time, a timeout was taken to confirm the correct patient and procedure. The patient's general anesthesia was given via endotracheal intubation. Next, the flexible bronchoscope was passed through the ET tube and advanced to the end of the scope. A 1 cm from the tip of the scope, the tracheal mass was identified. It was significantly smaller in comparison with the preoperative imaging findings. There was probably 30-40% of luminal narrowing at the mid trachea. The bronchoscope was easily traversed across the lesion to the arcenio and then in the left and right mainstem bronchi, a guidewire was placed. The lesion was measured in size. At this time, we felt the opening require greater than a 12 x 30 mm stent based on the size of the tracheal opening. At this time, all wires removed. The bronchoscope was removed and the procedure was terminated. The patient was extubated and transferred to the PACU in stable condition. TRANSINT:[id number] Voice Confirmation ID: [id number] DOCUMENT ID: [id number] GABE HOUSER MD at 0748 CC: [id number] DICTATION DATE: 11/26/16 1541 OFFICE CORRESPONDENT: 11/26/16 0727 [place] [address]
--- NOTE | 2016-11-28 08:55 | NUR ---
DR. LANTIGUA AT BEDSIDE. DISCUSSED ABOUT PT CARE.
--- NOTE | 2016-11-28 11:20 | NUR ---
REASSESSMENT COMPLETE, SEE FLOWSHEET FOR DETAILS. MINIMAL CHANGES. PT AWAKE, ANXIOUS.
--- NOTE | 2016-11-28 12:30 | NUR ---
FAMILY AT BEDSIDE. UPDATE PROVIDED. DENIES NEEDS. ORDERED PATIENT ENSURE FOR LUNCH AND DINNER
--- NOTE | 2016-11-28 13:40 | NUR ---
DR. WELLS AT BEDSIDE.
--- NOTE | 2016-11-28 15:20 | NUR ---
REASSESSMENT COMPLETE. SEE FLOWSHEET FOR DETAILS. PT SIGNIFICANT OTHER AT BEDSIDE. UPDATE PROVIDED. PT REPORTS FEELING ANXIOUS, REQUESTS XANAX. ATIVAN WAS GIVEN
--- NOTE | 2016-11-28 16:10 | NUR ---
PT VERY ANXIOUS. RT NOTIFIED, BREATHING TREATMENT IN PROGRESS. PT REQUESTING MORE MORPHINE OR ATIVAN. NORCO GIVEN.
--- NOTE | 2016-11-28 17:55 | NUR ---
NOTIFIED DR. WELLS OF PATIENT'S INCREASED WHEEZING AND RHONCHI. NO NEW ORDERS.
--- NOTE | 2016-11-28 18:29 | NUR ---
CALLED LAB ASKING ABOUT VANC TROUGH, SAID IT NEEDS A FEW MORE MINUTES
--- NOTE | 2016-11-28 19:36 | NUR ---
ASSESSMENT COMPLETED. AROUSES TO VERBAL STIMULI. O2@ 15L OXYMIZER, LABORED BREATHING WITH STRIDOR NOTED. LT INFUSAPORT WITH BRII C-D-I WITH NS WITH 20MEQ KCL @ 40CC/HR VIA PUMP. PALOMO CATH INTACT. ST ON THE MONITOR. WILL CONT TO MONITOR RESP STATUS.
--- NOTE | 2016-11-28 21:00 | NUR ---
NO VISITOR'S AT THIS TIME. ST ON THE MONITOR.
--- NOTE | 2016-11-28 22:08 | NUR ---
ANXIOUS. ATIVAN 1MG IV GIVEN PER ORDERS. WILL CONT TO MONITOR.
[2016-11-29] VITALS (23 sets, daily range): BP systolic 71–174; BP diastolic 56–110
--- NOTE | 2016-11-29 00:10 | NUR ---
O2 SAT DROPPING. PLACED ON 100%NRB, LABORED AND INCREASED STRIDOR. ABG'S OBTAINED AND CALLED TO DR WELLS. NOTIFIED ED FOR INTUBATION.
--- NOTE | 2016-11-29 00:20 | NUR ---
DR SWAIN HERE. 7.5 ETT PLACED X 1 ATTEMPT AT 19CM AT LIP LINE. CALLED [facility] PCXR. TOLLERATED WELL.
--- NOTE | 2016-11-29 00:43 | NUR ---
DR SWAIN CALLED. LUCIE RT TO ADVANCE ETT TO 22CM. PT TOLLERATED WELL.
--- NOTE | 2016-11-29 00:50 | NUR ---
SPOKE WITH MIRA KLINE CONTACT. UPDATE GIVEN. WILL CONT TO MONITOR.
--- NOTE | 2016-11-29 02:34 | NUR ---
BP LOW, PT SITTING UP IN BED, UNABLE TO INCREASE SEDATION AT THIS TIME. LEVOPHED STARTED PER ORDERS, SEDATION INCREASED. WILL CONT TO MONITOR.
[2016-11-29 04:50] LABS: BASOPHILS 0.1 % (0-2); EOSINOPHILS 0 % (0-7); HEMATOCRIT 36.9 % (36.0-48.0); HEMOGLOBIN 11.5 g/dL (12-16); IMMATURE GRANULOCYTES 2.2 % (0-5); LYMPHOCYTES 3.4 % (15-50); MCH 28.8 pg (26.0-34.0); MCHC 31.2 g/dL (31.0-37.0); MCV 92.3 fL (80.0-100.0); MEAN PLATELET VOLUME 10.6 fL (7.4-10.4); NEUTROPHILS 91.3 % (40-80); PLATELET COUNT 236 10x3/uL (130-400); RDW 17.1 % (11.5-14.5); WBC 33.2 10x3/uL (4.8-10.8)
[2016-11-29 04:54] LABS: APTT 26.2 SECONDS (22.8-39.4); INR 1.36 (0.85-1.17); PROTIME 16.7 SECONDS (11.6-15.0)
[2016-11-29 05:01] LABS: ALBUMIN 1.9 g/dL (3.4-5.0); ANION GAP 11.4 mmol/L (8-16); BILIRUBIN - TOTAL 0.9 mg/dL (0.2-1.3); CALCIUM 9.6 mg/dL (8.5-10.1); CARBON DIOXIDE 30.1 mmol/L (21.0-32.0); POTASSIUM - SERUM 3.5 mmol/L (3.5-5.1); PROTEIN - SERUM 6.9 g/dL (6.4-8.2)
--- NOTE | 2016-11-29 09:08 | NUR ---
0800 AM ASSESMENT IS COMPLETE SEE FLOW SHEET FOR FINDINGS.. PT IS ORALLY INTUBTED AND SEDATED ON VENT.. 0900 DR HOUSER IN TO SEE PT AND UPDATE IS GIVEN RE INTUBATION.. UNABLE TO LOCATE FAMILY MEMEBERS AT THIS TIME 904 OR CALLED AND PRE OP ORDERS GIVEN ALL MEDS CHANGED TO IV SINCE THE PT IS NOW INTUBATED
--- NOTE | 2016-11-29 10:24 | NUR ---
NUTRITION MONITORING & EVAL CHART REVIEWED. PT NOW ON VENT. DIPRIVAN @ 14 CC/HR PROVIDING ~370 KCAL PER DAY. RECOMMEND PULMOCARE TUBE FEEDS WITH CURRENT GOAL RATE 30 CC/HR. TO INCREASE DIPRIVAN DECREASES. RD FOLLOWING
--- NOTE | 2016-11-29 11:38 | NUR ---
1000 OR TEAM HERE ANDASSERSING PT.. DR HOUSER HERE UNABLE TO LOCATE FAMILY 1030 PT TRANSPORTED TO THE OR VIA BED.. OR STAFF BAGGING PT 1120 RETURNED FROM THE OR VIA BED PT IS SEDATED REMAINS ON THE VENT.. ETT SIZE NOW AN 8 .. DR HOUSER SPOKE WITH PT FAMILY.. 1140 FAMILY IN TO SEE PT..
--- NOTE | 2016-11-29 12:29 | NUR ---
1200 DR SANDS IN TO SEE PT.. SPOKE WITH FAMILY .. 1220 DR SANDS DROPPED OGT 18FR.. TO BE PLACED TO LIWS..
--- NOTE | 2016-11-29 14:05 | EC ---
PATIENT:EDGAR NEGRON DATE OF SERVICE: 11/23/16 SEX: F MEDICAL RECORD: [id number] DATE OF : 57 LOCATION:[facility] D231 AGE OF PATIENT: 61 ADMISSION DATE: 11/23/16 REFERRING PHYSICIAN: INTERPRETING PHYSICIAN: MALAIKA WILLIS MD ECHOCARDIOGRAM REPORT ECHO CHARGES 5 ECHO LIMITED CLINICAL DIAGNOSIS: CMP HX HTN, STENT IN LEG ECHOCARDIOGRAPHIC MEASUREMENTS (adult normal given) AC root (d.<3.7cm) LV Septum d (<1.2 cm> Valve Excursion LV Septum (systole) Left Atria (s.<4.0cm> 3.7 LVPW d(<1.2cm) RV (d.<2.3cm) 3.1 LVPW (sytole) LV diastole(<5.6CM) 3.8 MV E-F(>70mm/sec) LV systole 2.7 LVOT Diameter MV exc.(>10mm) Est.ejection fraction (50-75%) Pericardial Effusion N DOPPLER: LVIT A 107 E 72.0 LA RVSP 21 LVOT 129 AOP1/2T Asc. Ao 149 RVOT RA PA AV Gradient Peak 8.89 AV Mean 4.91 AV Area 1.6 MV Gradient Peak 5.69 MV Mean 2.21 MV Area COMMENTS: Ward Nurse: Chioma CEJA Cell Repairer:10 Dr. Rivera TAPE# PACS DATE OF SERVICE: 11/25/2016 This one is typically a difficult study. This patient has underlying obstructive pulmonary disease and ____. ____ mode. No LVH. LV internal dimension is normal. Wall motion is normal. EF is greater than or equal to 35%. Aortic valve is tricuspid. No evidence of stenosis on Doppler interrogation. Left atrium is normal. Mitral valve shows no prolapse. Trace MR. Right-sided chamber is grossly normal. Trace TR. TRANSINT:[id number] Voice Confirmation ID: [id number] DOCUMENT ID: [id number] ECHOCARDIOGRAM REPORT [id number] EDGAR NEGRON MALAIKA WILLIS MD at 1405 CC: [id number] DICTATION DATE: 11/25/16 1314 CAN TENDER: 11/25/16 2140 ADM IN [facility] [address] [place] [address]
--- NOTE | 2016-11-29 14:05 | CN ---
PATIENT NAME:EDGAR NEGRON MEDICAL RECORD: [id number] : 57 LOCATION:[facility].2312 ADMIT DATE: 11/23/16 ACCOUNT: [id number] CONSULTING PHYSICIAN: MALAIKA WILLIS MD REFERRING PHYSICIAN: RONALD LUU MD DATE OF CONSULTATION: 11/24/2016 HISTORY OF PRESENT ILLNESS: A 61-year-old female with no known history of coronary artery disease, history of an apparent valvular heart disease, somewhat a poor historian. Questionable aortic graft. She has a history of lung cancer ____, anemia and dehydration. Noted to have minimally elevated troponin levels. We are asked to see her concerning her cardiovascular status. PAST MEDICAL HISTORY: 1. History of stage IV lung carcinoma. 2. Hypertension. 3. Hyperlipidemia. 4. Peripheral ____ disease. 5. Hypothyroidism, on replacement. 6. Obstructive pulmonary disease. 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 ALLERGIES: None known. MEDICATIONS: Typically at home include Phenergan 25 mg p.o. every day, ProAir 2 puffs q.i.d., Flexeril 10 every day, Coumadin 2.5 every day, fenofibrate 160 every day, simvastatin 40 every day, lisinopril 10 every day, metoprolol 25 every day, Ambien 10 p.r.n., Celexa 10 every day, Lasix 20 every day, Omeprazole 20 every day, and Synthroid 75 mcg daily. SOCIAL HISTORY: Lives in [facility]. She has been having more problems with her ADLs since her cancer diagnosis. REVIEW OF SYSTEMS: The patient reports easy bruising but reports no swollen glands. The patient reports no fever, no night sweats, no significant weight gain, no significant weight loss. No significant exercise tolerance. The patient reports no dry eyes, no irritation, no vision change. Patient reports no difficulty hearing and no ear pain. Patient reports no frequent nose bleeds or nose and sinus problems. Patient reports on arm pain on exertion. No shortness of breath while lying down. No history of heart murmur. Patient reports no cough, no wheezing or coughing up blood. Patient reports no abdominal pain, no vomiting. Normal appetite. No diarrhea and not vomiting blood. No nausea and no constipation. Patient reports no incontinence. No difficulty urinating. No hematuria. No increased frequency. Patient reports no muscle aches. No weakness, no arthralgias, no back pain. No swelling of the extremities. Patient reports no abnormal mole, no jaundice, no rashes. Reports no loss of consciousness. No weakness and no numbness. No seizures, dizziness, or headaches. The patient reports no depression, no sleep disturbance, feeling safe in a relationship and no alcohol abuse. Patient reports on fatigue. Reports no runny nose or sinus pressure. No itching, no hives, and no frequent sneezing. PHYSCIAL EXAMINATION: GENERAL: Chronically ill-appearing female, appears older than stated age. VITAL SIGNS: Blood pressure 113/56, pulse currently 100 and regular. CONSULT REPORT [id number] EDGAR NEGRON HEENT: Normocephalic, atraumatic. NECK: No bruits noted. HEART: Regular. II/ systolic ejection murmur. I do not hear a gallop. LUNGS: Prolonged expiratory phase with expiratory wheezes. ABDOMEN: Soft, nontender. EXTREMITIES: Pulses are 1+ with no edema. NEUROLOGIC: Grossly intact. DIAGNOSTIC DATA: ECG shows sinus rhythm and sinus tachycardia without acute ST-T changes. IMPRESSION: Elevated troponin, suspect multifactorial. Some kind of demand ischemia with profound anemia, obstructive pulmonary disease and no acute ST-T shifts. Agree with current management. We will check echocardiogram study to assess aortic valve. Given her overall debility, would have a low threshold for stopping her Coumadin. TRANSINT:[id number] Voice Confirmation ID: [id number] DOCUMENT ID: [id number] MALAIKA WILLIS MD at 1405 CC: [id number] DICTATION DATE: 11/24/161416 CRISIS COUNSELOR: 11/24/16 5198 ADM IN [facility] [address] [place] [address]
--- NOTE | 2016-11-29 14:39 | NUR ---
1330 X RAY DONE FOR OGT CONFIRMATION 1400 REMAINS WITHOUT CHANGES..
--- NOTE | 2016-11-29 18:08 | NUR ---
[address] SANDS BEEPED.. I AND O DONE.. REPOSITIONG DONE
--- NOTE | 2016-11-29 19:30 | NUR ---
REPORT RECIEVED. ASSESSMENT COMPLETED. PT SEDATED ON VENT. SEE FLOW SHEET FOR FURTHER DETAILS.
--- NOTE | 2016-11-29 19:45 | OP ---
PATIENT NAME: EDGAR NEGRON MEDICAL RECORD: [id number] :57 LOCATION:[facility] D.2312 ADMISSION DATE:11/23/16 SURGEON: GABE HOUSER MD DATE OF OPERATION: 11/29/2016 SURGEON: Gabe Houser MD. PREOPERATIVE DIAGNOSES: 1. Metastatic lung cancer. 2. Acute respiratory failure. POSTOPERATIVE DIAGNOSES: 1. Metastatic lung cancer. 2. Acute respiratory failure. PROCEDURES PERFORMED: 1. Bronchoscopy. 2. Immediate interpretation of fluoroscopy. 3. Placement of an 18 x 40-mm [employer] tracheobronchial stent. ANESTHESIA: General. COMPLICATIONS: None. SPECIMENS: None. Case was contaminated. OPERATIVE COURSE: After consent was obtained, the patient was taken to the operating room and placed in the supine position on the operating table. Next, general anesthesia was given via endotracheal intubation after a timeout was performed that confirmed the correct patient and procedure. The 7-1/2 ET tube was exchanged for an 8 endotracheal tube. A timeout was taken to confirm the correct patient and procedure. The T-piece adapter was placed. The bronchoscope was lubricated and passed through the endotracheal tube to the endoscope. The tumor was identified. A radiopaque ruler was placed on the chest wall. The proximal portion of the tracheal lesion was identified with fluoroscopy. The site was marked on the fluoroscopic tape. The bronchoscope was then passed distal trachea to the arcenio. Distal margin lesion was again marked with fluoroscopy on the fluoroscopic tape. An Amplatz wire was placed through the scope. The scope was then withdrawn. The [employer] 18 x 40-mm tracheobronchial stent was then passed over the Amplatz wire under direct fluoroscopy, it was advanced. The radiopaque markers were lined up along at the markings on the fluoroscopic tape once the stent was marked in place. The stent was deployed. The deployment system was removed. The Glidewire was removed. The bronchoscope was then passed back through the ET tube. The tracheobronchial stent was noted to be in place. It covered the lesion from proximal to distal. The tip of the stent ended just above the arcenio. There was no obstruction of the arcenio. Both the right mainstem bronchi were entered and examined. At this time, the bronchoscope was removed. There were no obvious signs of bleeding and the procedure was terminated. The patient was transferred to the ICU in stable condition. TRANSINT:[id number] Voice Confirmation ID: [id number] DOCUMENT ID: [id number] OPERATIVE REPORT [id number] EDGAR NEGRON JAMES J MD at 1945 CC: [id number] DICTATION DATE: 11/29/16 111 CAR INSPECTOR: 11/29/16 1639 ADM IN [place] [id number] [place] [address]
--- NOTE | 2016-11-29 21:00 | NUR ---
REASSESSMENT COMPLETED. PT SEDATED ON VENT. PT POSITIONED FOR COMFORT ORAL CARE GIVEN.
[2016-11-30] VITALS (24 sets, daily range): BP systolic 104–186; BP diastolic 74–119
--- NOTE | 2016-11-30 03:00 | NUR ---
PT SEDATED ON VENT. ORAL CARE GIVEN. REPOSITIONED FOR COMFORT.
[2016-11-30 04:14] LABS: BASOPHILS 0.1 % (0-2); EOSINOPHILS 0 % (0-7); HEMATOCRIT 38.5 % (36.0-48.0); HEMOGLOBIN 12.5 g/dL (12-16); IMMATURE GRANULOCYTES 2.3 % (0-5); LYMPHOCYTES 4.1 % (15-50); MCH 29.1 pg (26.0-34.0); MCHC 32.5 g/dL (31.0-37.0); MCV 89.5 fL (80.0-100.0); MEAN PLATELET VOLUME 10.7 fL (7.4-10.4); MONOCYTES 3.5 % (2-11); PLATELET COUNT 208 10x3/uL (130-400); RDW 17.4 % (11.5-14.5); WBC 32.4 10x3/uL (4.8-10.8)
[2016-11-30 04:43] LABS: ALBUMIN 1.9 g/dL (3.4-5.0); ALKALINE PHOSPHATASE 123 U/L (46-116); ALT (SGPT) 22 U/L (10-68); BILIRUBIN - TOTAL 1.07 mg/dL (0.2-1.3); CALCIUM 9.1 mg/dL (8.5-10.1); CARBON DIOXIDE 30.1 mmol/L (21.0-32.0); CHLORIDE - SERUM 96 mmol/L (98-107); CREATININE - SERUM 0.8 mg/dL (0.6-1.3); GLUCOSE 184 mg/dL (74-106); MAGNESIUM - SERUM 1.4 mg/dL (1.8-2.4); PHOSPHOROUS 2.3 mg/dL (2.5-4.9); PROTEIN - SERUM 7.3 g/dL (6.4-8.2); SODIUM 136 mmol/L (136-145); eGFR NON AFRICAN AMERICAN 77 mL/min (90-120)
[2016-11-30 04:53] LABS: CALC OSMOLALITY 277 mosm/kg (275-300); UREA NITROGEN 16 mg/dL (7-18)
[2016-11-30 04:54] LABS: POTASSIUM - SERUM 2.9 mmol/L (3.5-5.1)
--- NOTE | 2016-11-30 07:00 | NUR ---
SHIFT REPORT RECEIVED. PT ON VENT A/C TV 500, RR 18, PEEP 5, FIO2 50%. INFUSA PORT ON LEFT CHEST, PATANT, DRESSING INTACT, CLEAN AND DRY. PALOMO SECURED TO RIGHT LEG. YELLOW CLEAR URINE. PT ON POTASSIUM PROTOCOL FOR A POTASSIUM OF 2.9.
--- NOTE | 2016-11-30 09:00 | NUR ---
PT REPOSITION X 2 ASSIST.
--- NOTE | 2016-11-30 14:48 | NUR ---
LEVOQUIN ADMINISTERED. PT REPOSITIONED X 2 ON TO LEFT SIDE.
--- NOTE | 2016-11-30 15:00 | NUR ---
MAN HERE FOR 3PM VISITATION, SAYS HE IS THE PATIENT'S "OLD MAN" PT IS SLEEPING, HE DIDN'T WANT TO DISTURB HER. JUST LET HER KNOW THAT HE CAME BY
--- NOTE | 2016-11-30 17:48 | NUR ---
CALLED LAB AND SPOKE WITH KARRIE. ASKED HIM IF HE COULD ADD ON POTASSIUM LAB WITH THE BLOOD SPECIMIN THAT WAS PULLED FOR [facility]. HE SAID IT COULD LET HIM KNOW I WOULD BE PUTTING IN AN ORDER IF HE WOULD GET THE LAB RUN.
--- NOTE | 2016-11-30 19:00 | NUR ---
SHIFT ASSESSMENT COMPLETE. PT SEDATED WITH NO RESPONSE TO VOICE OR STIMULATION TO HANDS OR FEET. PUPILS 3MM, BRISK REACTION TO LIGHT. ETT/OGT, 7.5 MM AT 22 CM ON THE RIGHT SIDE OF MOUTH. S1S2 AUDIBLE. CRACKLES BILATERAL IN LOWER LOBES. INFUSAPORT ON L CHEST, PATENT, DRESSING CDI WITH NO S/S OF INFECTION. ABDOMEN IS FLAT AND SOFT. GENERALIZED BRUISING ON ARMS. PALOMO CATH INTACT DRAINGING CLEAR YELLOW URINE. GENERALIZED EDEMA. CAP REFEILL < 3 SEC. ORAL CARE PROVIDED AND PT REPOSITIONED FOR COMFORT. WILL CONTINUE TO MONITOR.
--- NOTE | 2016-11-30 21:30 | NUR ---
PT REPOSITIONED TO HER BACK. ORAL CARE PROVIDED. BED IN LOWEST POSITION. WILL CONTINUE TO MONIOTR.
--- NOTE | 2016-11-30 23:30 | NUR ---
PUPILS 3MM AND SLUGGISH REACTION TO LIGHT. WENT DOWN TO 60 MCG/KG/MIN ON THE DIPRIVAN. WILL CONTINUE TO MONITOR. REPOSTIONED FOR COMFORT AND ORAL CARE PROVIDED. CALL LIGHT IN REACH. BED IN LOWEST POSITION.
[2016-12-01] VITALS (23 sets, daily range): BP systolic 90–169; BP diastolic 60–112
--- NOTE | 2016-12-01 01:26 | NUR ---
PT SEDATED. PUPILS ARE RETURNING BACK TO THEIR BASELINE. REPOSTIONED FOR COMFORT. ORAL CARE PROVIDED. WILL CONTINUE TO MONITOR.
--- NOTE | 2016-12-01 03:30 | NUR ---
VSS. PT PUPILS ARE STILL SLIGHTLY SLUGGISH, BUT ARE GETTING MORE BRISK. CALL LIGHT IN REACH. BED IN LOWEST POSITION. WILL CONTINUE TO MONITOR.
[2016-12-01 04:35] LABS: BASOPHILS 0.1 % (0-2); EOSINOPHILS 0 % (0-7); HEMATOCRIT 40.5 % (36.0-48.0); HEMOGLOBIN 13.1 g/dL (12-16); IMMATURE GRANULOCYTES 1.5 % (0-5); MCH 28.9 pg (26.0-34.0); MCHC 32.3 g/dL (31.0-37.0); MCV 89.2 fL (80.0-100.0); MEAN PLATELET VOLUME 10.6 fL (7.4-10.4); MONOCYTES 3.3 % (2-11); NEUTROPHILS 92.1 % (40-80); PLATELET COUNT 188 10x3/uL (130-400); RBC 4.54 10x6/uL (4.00-5.40); RDW 17.4 % (11.5-14.5); WBC 34.2 10x3/uL (4.8-10.8)
[2016-12-01 04:43] LABS: INR 1.23 (0.85-1.17); PROTIME 15.4 SECONDS (11.6-15.0)
[2016-12-01 04:50] LABS: ALBUMIN 1.9 g/dL (3.4-5.0); ALKALINE PHOSPHATASE 130 U/L (46-116); ALT (SGPT) 19 U/L (10-68); BILIRUBIN - TOTAL 1.14 mg/dL (0.2-1.3); CALC OSMOLALITY 272 mosm/kg (275-300); CALCIUM 9.3 mg/dL (8.5-10.1); CARBON DIOXIDE 28.8 mmol/L (21.0-32.0); CHLORIDE - SERUM 96 mmol/L (98-107); CREATININE - SERUM 0.8 mg/dL (0.6-1.3); GLUCOSE 213 mg/dL (74-106); POTASSIUM - SERUM 3.6 mmol/L (3.5-5.1); PROTEIN - SERUM 7.5 g/dL (6.4-8.2); SODIUM 133 mmol/L (136-145); UREA NITROGEN 16 mg/dL (7-18); eGFR NON AFRICAN AMERICAN 77 mL/min (90-120)
[2016-12-01 04:54] LABS: MAGNESIUM - SERUM 1.8 mg/dL (1.8-2.4); PHOSPHOROUS 3.4 mg/dL (2.5-4.9)
--- NOTE | 2016-12-01 05:30 | NUR ---
ORAL CARE PROVIDED. REPOSITIONED FOR COMFORT. WILL CONTINUE TO MONITOR.
--- NOTE | 2016-12-01 07:00 | NUR ---
SHIFT ASSESSMENT COMPLETE ON VENT FIO2 40% RATE 12 TIDAL VOLUME 500 ETT 22 AT LIPLINE, PULMOCARE AT 20 VIA OGT. PORT TO LEFT CHEST, DRESSING CHANGED, BATH AND MOUTH CARE PROVIDED, LINEN CHANGED, NO NEEDS OR PAIN NOTED
--- NOTE | 2016-12-01 09:00 | NUR ---
PT WITHOUT CHANGES, VSS, NO NEEDS NOTED
--- NOTE | 2016-12-01 09:35 | NUR ---
NUTRITION MONITORING & EVAL CHART REVIEWED. PT ON VENT, PULMOCARE CURRENTLY AT 20 CC/HR. RD FOLLOWING
--- NOTE | 2016-12-01 11:00 | NUR ---
PT REASSESSED, VSS, CONTIUES ON VENT WITH NO CHANGES
--- NOTE | 2016-12-01 13:00 | NUR ---
PT SEDATED ON VENT, REPOSITIONED, VSS, SUCTIONING AND MOUTH CARE PROVIDED, WILL CONTIUE TO MONITOR
--- NOTE | 2016-12-01 14:52 | NUR ---
PT REPOSITIONED FOR COMFORT, CONTIUES SEDATED ON VENT, NO SIGNS OF PAIN OR DISCOMFORT, SUCTIONING AND MOUTH CARE PROVIDED, SCDS IN PLACE, WILL CONTIUE TO MONITOR
--- NOTE | 2016-12-01 17:00 | NUR ---
PT CONTIUES SEDATED ON VENTILATOR. VSS. REPOSITIONED AND SUCTIONED WITH MOUTH CARE. NO SIGNS OF PAIN. WILL CONTIUE TO MONITOR
--- NOTE | 2016-12-01 19:30 | NUR ---
PT UNABLE TO RESPOND TO COMMANDS. PUPILS 3MM, BRISK REACTION TO LIGHT. ETT SIZE 8, RESTING ON THE L SIDE OF THE MOUTH AT 21 CM. VENT SETTINGS: RATE-12, TIDAL VOLUME-500, PRESSURE SUPPORT-15, FIO2-40%, PEEP-5. TUBE FEEDING SET AT 20 ML/HR, PULMOCARE. S1S2 AUDIBLE. RHYTHM IS SINUS TACH VIA TELEMETRY. HER SKIN IS WARM AND PINK, ON HER BUTTOCKS THERE IS A SMALL REDDENED AREA. WILL MONITOR THAT CLOSELY. BRUISES BILATERALLY ON ARMS. PALOMO CATH DRAINING CONCENTRATED YELLOW URINE. RESTRAINTS AND SCDS REMOVED TO ASSESS SKIN, WNL. PULSES EQUAL, +2. ORAL CARE PROVIDED. BED IN LOWEST POSITION. WILL CONTINUE TO MONITOR.
--- NOTE | 2016-12-01 21:30 | NUR ---
REPOSITIONED FOR COMFORT. ORAL CARE PROVIDED. BED IN LOWEST POSITION. WILL CONTINUE TO MONITOR. VSS.
--- NOTE | 2016-12-01 23:15 | NUR ---
PT UNABLE TO FOLLOW COMMANDS. SUCTIONED, PT TOLERATED PROCEDURE. THERE IS A SLIGHT ELEVATION IN HER BP, WILL CONTINUE TO MONITOR. ORAL CARE PROVIDED. BED IN LOWEST POSITION.
--- NOTE | 2016-12-01 23:30 | NUR ---
PT KEPT ON HER L SIDE DUE TO THE REDDEND AREA ON HER BUTTOCKS. WILL TURN HER TO THE R SIDE AT 0100.
[2016-12-02] VITALS (29 sets, daily range): BP systolic 93–164; BP diastolic 63–105
--- NOTE | 2016-12-02 01:30 | NUR ---
REPOSITIONED TO R SIDE. ORAL CARE PROVIDED. BED IN LOWEST POSITION. BP WNL. WILL CONTINUE TO MONITOR.
--- NOTE | 2016-12-02 03:30 | NUR ---
REPOSITIONED FOR COMFORT. ORAL CARE PROVIDED. VSS. WILL CONTINUE TO MONITOR.
--- NOTE | 2016-12-02 05:00 | NUR ---
ORAL CARE PROVIDED. PASSIVE ROM ON FEET. BP STABLE, VSS. WILL CONTINUE TO MONITOR.
[2016-12-02 05:12] LABS: BASOPHILS 0.1 % (0-2); EOSINOPHILS 0 % (0-7); HEMOGLOBIN 12.4 g/dL (12-16); IMMATURE GRANULOCYTES 1.5 % (0-5); LYMPHOCYTES 5.7 % (15-50); MCH 28.8 pg (26.0-34.0); MCHC 31.8 g/dL (31.0-37.0); MCV 90.5 fL (80.0-100.0); MEAN PLATELET VOLUME 11.1 fL (7.4-10.4); MONOCYTES 3.9 % (2-11); NEUTROPHILS 88.8 % (40-80); PLATELET COUNT 180 10x3/uL (130-400); RBC 4.31 10x6/uL (4.00-5.40); RDW 17.6 % (11.5-14.5); WBC 31.6 10x3/uL (4.8-10.8)
[2016-12-02 05:19] LABS: ANION GAP 13.8 mmol/L (8-16); CALCIUM 8.2 mg/dL (8.5-10.1); CREATININE - SERUM 0.9 mg/dL (0.6-1.3); POTASSIUM - SERUM 3.8 mmol/L (3.5-5.1)
--- NOTE | 2016-12-02 07:00 | NUR ---
PT CONTIUES SEDATED ON VENT, VSS, BATH, ORAL CARE, SUCTIONING, LINEN CHANGE, REPOSITIONING PROVIDED, NO SIGNS OF PAIN, SHIFT ASSESSMENT COMPLETED, WILL CONTINUE TO MONITOR
--- NOTE | 2016-12-02 08:00 | NUR ---
PT WITH RIGHT PNEUMOTHORAX, DR SANDS NOTIFIED, VSS, REPOSITONED, NO SIGNS OF PAIN, WILL CONTINUE TO MONITOR
--- NOTE | 2016-12-02 10:04 | NUR ---
VARINDER IN IR NOTIFIED OF NEW ORDER FOR PIGTAIL TO BE PLACED
--- NOTE | 2016-12-02 11:00 | NUR ---
PT SEDATED ON VENT, TOOK TO IR FOR PIGTAIL PLACEMENT TO RIGHT LUNG, VSS, WILL CONTIUE TO MONITOR
--- NOTE | 2016-12-02 12:04 | NUR ---
PT RETURNED FROM IR CONTIUES SEDATED ON VENT, CHEST PIGTAIL IN PLACE TO RIGHT LUNG, VSS, FAMILY AWARE, REPOSITIONED, SUCTIONING PROVIDED, WILL CONTIUE TO MONITOR
--- NOTE | 2016-12-02 14:00 | NUR ---
PT CONTINUES SEDATED ON VENT, CHEST TUBE IN PLACE, REPOSITIONED, ORAL CARE PROVIDED, SUCTIONED, VSS, NO SIGNS OF PAIN, WILL CONTINUE TO MONITOR
--- NOTE | 2016-12-02 15:00 | NUR ---
PT CONTIUES SEDATED ON VENT, REPOSITIONED, NO SIGNS OF PAIN, WILL CONTIUE TO MONITOR
--- NOTE | 2016-12-02 17:00 | NUR ---
PT CONTIUES SEDATED ON VENTILATOR, AROUSED BY VERBAL STIMULI, VSS, CHEST TUBE TO SUCTION, REPOSITIONED, NO SIGNS OF PAIN, WILL CONTIUE TO MONITOR
--- NOTE | 2016-12-02 19:30 | NUR ---
PT SEDATED, UNABLE TO FOLLOW ANY COMMANDS. PUPILS 3 MM, BRISK REACTION TO LIGHT. ETT/OGT SIZE 8, MIDLINE TO LIP AT 22 CM. VENT SETTINGS: SIMV, RATE-12, TIDAL VOLUME-500, PRESSURE SUPPORT-15, FIO2-35%. S1S2 AUDIBLE. HR-118, SINUS TACH VIA TELEMETRY. O2 SAT-98%. BOWEL SOUNDS ACTIVE X4. PULMOCARE AT 20 ML/HR. CHEST TUBE ON RIGHT SIDE, UPPER ABDOMEN, SITE CDI, NO DRAINAGE NOTED, SUCTION SET AT 20 CM H20. PALOMO CATH DRAINING CONCENTRAED URINE. SKIN IS PINK AND MOIST. REMOVED BLANKETS AND TURNED ON HER FAN TO COOL PT OFF. PASSIVE ROM TO FEET. REMOVED RESTRAINTS AND SCDS TO ASSESS SKIN, WNL. IV- PROPOFOL @ 37 MCG/KG/MIN AND NS + KCL 20 MEQ @ 40. ORAL CARE PROVIDED. BED IN LOWEST POSITION. WILL CONTINUE TO MONITOR.
--- NOTE | 2016-12-02 21:30 | NUR ---
REPOSITIONED FOR COMFORT. VSS. ORAL CARE PROVIDED. WILL CONTINUE TO MONITOR.
--- NOTE | 2016-12-02 23:30 | NUR ---
APPLIED LEONIDES TO RIGHT BUTTOCKS. ORAL CARE PROVIDED. VSS. CHEST TUBE DRESSING CDI. WILL CONTINUE TO MONITOR.
[2016-12-03] VITALS (24 sets, daily range): BP systolic 102–163; BP diastolic 67–115
--- NOTE | 2016-12-03 01:31 | NUR ---
ORAL CARE PROVIDED. KEPT PT ON R SIDE AND ADDED EXTRA PILLOW. SUCTIONED MOUTH OUT. BED IN LOWEST POSITION. CHANGED OUT [place] PUMP TUBING. VSS. WILL CONTINUE TO MONITOR.
--- NOTE | 2016-12-03 03:30 | NUR ---
PROVIDED PALOMO CARE AND ORAL CARE. REPOSITONED ON BACK. SKIN IS SLIGHTLY CLAMMY. NO BLANKETS AT THIS TIME. VSS. BED IN LOWEST POSITION.
[2016-12-03 04:01] LABS: BASOPHILS 0 % (0-2); EOSINOPHILS 0 % (0-7); HEMATOCRIT 39.3 % (36.0-48.0); HEMOGLOBIN 12.5 g/dL (12-16); IMMATURE GRANULOCYTES 1.3 % (0-5); LYMPHOCYTES 3.6 % (15-50); MCH 28.7 pg (26.0-34.0); MCHC 31.8 g/dL (31.0-37.0); MCV 90.3 fL (80.0-100.0); MEAN PLATELET VOLUME 11.3 fL (7.4-10.4); MONOCYTES 4.8 % (2-11); NEUTROPHILS 90.3 % (40-80); PLATELET COUNT 120 10x3/uL (130-400); RBC 4.35 10x6/uL (4.00-5.40); RDW 17.5 % (11.5-14.5); WBC 28.2 10x3/uL (4.8-10.8)
[2016-12-03 05:02] LABS: ALBUMIN 1.5 g/dL (3.4-5.0); ALKALINE PHOSPHATASE 113 U/L (46-116); CALC OSMOLALITY 286 mosm/kg (275-300); CALCIUM 7.8 mg/dL (8.5-10.1); CARBON DIOXIDE 30.5 mmol/L (21.0-32.0); CHLORIDE - SERUM 101 mmol/L (98-107); CREATININE - SERUM 0.7 mg/dL (0.6-1.3); GLUCOSE 264 mg/dL (74-106); MAGNESIUM - SERUM 1.6 mg/dL (1.8-2.4); PHOSPHOROUS 1.9 mg/dL (2.5-4.9); POTASSIUM - SERUM 4.6 mmol/L (3.5-5.1); PROTEIN - SERUM 6.2 g/dL (6.4-8.2); SODIUM 137 mmol/L (136-145); UREA NITROGEN 25 mg/dL (7-18); eGFR NON AFRICAN AMERICAN 90 mL/min (90-120)
[2016-12-03 05:03] LABS: ALT (SGPT) 29 U/L (10-68)
--- NOTE | 2016-12-03 05:30 | NUR ---
REPOSITONED ON THE L SIDE FOR COMFORT. BLANKET ON LOWER EXTREMITIES, COOL TO TOUCH. ORAL CARE PROVIDED. VSS. BED IN LOWEST POSITION.
--- NOTE | 2016-12-03 07:00 | NUR ---
PT SEDATED ON VENT. OPENS EYES TO VERBAL STIMULI, VSS, CHEST TUBE IN PLACE, REPOSITIONED, HAIR WASHED, ORAL CARE PROVIDED, NO SIGNS OF PAIN, WILL CONTINUE TO MONITOR
--- NOTE | 2016-12-03 08:30 | NUR ---
CHEST TUBE CLAMPED, CXR TO FOLLOW IN APPROX 2 HOURS, WILL CONITUE TO MONITOR
--- NOTE | 2016-12-03 09:00 | NUR ---
PT CONTIUES SEDATED ON VENT, VSS, CHEST TUBE CONTINUES CLAMPED, REPOSITIONED, SUCTIONING AND ORAL CARE PROVIDED, WILL CONTNIUE TO MONITOR
--- NOTE | 2016-12-03 09:30 | NUR ---
RECIEVED CALL FROM EDMUNDO IN RADIOLOGY TO UNCLAMP CHEST TUBE AND RESUME WALL SUCTION PER MD CHEST TUBE WILL STAY IN PLACE AT THIS TIME
--- NOTE | 2016-12-03 09:35 | NUR ---
NUTRITION MONITORING & EVAL CHART REVIEWED. PT REMAINS SEDATED ON VENT. PULMOCARE @ 20 CC/HR. RECOMMEND CURRENT GOAL RATE 30 CC/HR. DIPRIVAN @ 13 CC/HR PROVIDING 343 KCAL/DAY. PULMOCARE & DIPRIVAN CURRENLTY PROVIDING 1063 KCAL AND [address] RD FOLLOWING
--- NOTE | 2016-12-03 10:46 | NUR ---
12/03/2016 10:44 DCP: Discharge Planning Patient Name: EDGAR NEGRON Encounter No: [id number] : 1955 Primary Insurance: MEDICARE A & B Anticipated DC Date: 11-29-2016 DCP follow-up note: Patient remains on vent. No family/visitors present. Case management will follow and assist as needed. Calli Alba
--- NOTE | 2016-12-03 10:59 | NUR ---
PT SEDATION AND TUBE FEEDING STOPPED AT THIS TIME TO PREPARE FOR CPAP AND VENT WEANING, PT AROUSES TO VERBAL STIMULATION AND IS RESPONSIVE. WILL CONTINUE TO MONITOR
--- NOTE | 2016-12-03 12:23 | NUR ---
PT EXTUBATED 1220 VSS, ALERT, VSS, DENIES PAIN, CALL LIGHT WITHIN REACH, REPOSITIONED, SPEECH TO EVAL
--- NOTE | 2016-12-03 12:30 | NUR ---
WHEN EXTUBATED, RESTRAINTS DISCONTINUED
--- NOTE | 2016-12-03 14:00 | NUR ---
PT ALERT ORIENTED X2 REORIENTED NEEDED, O2 VIA NASAL CANNULA. VSS. ABLE TO VOICE NEEDS, REPOSITIONED WITH CALL LIGHT WITHIN REACH, DENIES PAIN AND ALL NEEDS, WILL CONTINUE TO MONITOR
--- NOTE | 2016-12-03 16:00 | NUR ---
PT ALERT, RESPIRATIONS EVEN AND UNLABORED, DENIES PAIN AND ALL NEEDS, WILL CONTIUE TO MONITOR
--- NOTE | 2016-12-03 17:00 | NUR ---
PT ALERT, RESPIRATIONS EVEN AND UNLABORED O2 4L VIA NASAL CANNULA, DENIES PAIN AND ALL NEEDS, CALL LIGHT WITHIN REACH WILL CONTINUE TO MONITOR
--- NOTE | 2016-12-03 19:10 | NUR ---
SHIFT ASSESSMENT COMPLETE, SEE FLOWSHEET FOR DETAILS. PATIENT ALERT AND ORIENTED, RR EVEN AND NONLABORED ON 4L NC. S1S2, SINUS TACH ON MONITOR. PALOMO DRAINING BRANDY COLORED URINE TO GRAVITY. PERIPHERAL PULSES +2. VSS, CL IN REACH.
--- NOTE | 2016-12-03 21:00 | NUR ---
NIGHT MEDS GIVEN WITH APPLE SAUCE, TOLERATED WELL. 2300- REASSESSMENT COMPLETE, NO CHANGES AT THIS TIME. SEE FLOWSHEET FOR DETAILS. 0100- PATIENT RESTING WITH EYES CLOSED. RR EVEN AND NONLABORED. VSS, CL IN REACH. 0300- REASSESSMENT COMPLETE. SEE FLOWSHEET FOR DETAILS. VSS. DENIES NEEDS AT THIS TIME.
[2016-12-04] VITALS (16 sets, daily range): BP systolic 95–162; BP diastolic 58–91
[2016-12-04 04:38] LABS: BASOPHILS 0 % (0-2); EOSINOPHILS 0 % (0-7); HEMOGLOBIN 12.2 g/dL (12-16); IMMATURE GRANULOCYTES 0.6 % (0-5); LYMPHOCYTES 4.7 % (15-50); MCH 28.8 pg (26.0-34.0); MCHC 32.1 g/dL (31.0-37.0); MCV 89.6 fL (80.0-100.0); MONOCYTES 3.1 % (2-11); NEUTROPHILS 91.6 % (40-80); PLATELET COUNT 99 10x3/uL (130-400); RBC 4.24 10x6/uL (4.00-5.40); RDW 17.3 % (11.5-14.5); WBC 25.5 10x3/uL (4.8-10.8)
[2016-12-04 04:51] LABS: CALC OSMOLALITY 285 mosm/kg (275-300); CALCIUM 8.6 mg/dL (8.5-10.1); CARBON DIOXIDE 31.6 mmol/L (21.0-32.0); CHLORIDE - SERUM 99 mmol/L (98-107); CREATININE - SERUM 0.7 mg/dL (0.6-1.3); GLUCOSE 237 mg/dL (74-106); MAGNESIUM - SERUM 1.6 mg/dL (1.8-2.4); PHOSPHOROUS 1.7 mg/dL (2.5-4.9); SODIUM 137 mmol/L (136-145); UREA NITROGEN 24 mg/dL (7-18); eGFR NON AFRICAN AMERICAN 90 mL/min (90-120)
[2016-12-04 04:56] LABS: POTASSIUM - SERUM 2.7 mmol/L (3.5-5.1)
--- NOTE | 2016-12-04 05:00 | NUR ---
LABS REVIEWED, ELECTROLYTE PROTOCOL FOLLOWED PER ORDER.
--- NOTE | 2016-12-04 06:00 | NUR ---
CHEST TUBE CLAMPED AND ORDER PUT IN FOR 9AM PER ORDER OF DR SANDS.
[2016-12-05] VITALS: BP 127/80
[2016-12-05 04:00] VITALS: BP 133/86
[2016-12-05 06:05] LABS: HEMATOCRIT 34.3 % (36.0-48.0); MCH 28.9 pg (26.0-34.0); MCHC 32.1 g/dL (31.0-37.0); MCV 90.3 fL (80.0-100.0); MEAN PLATELET VOLUME 11.9 fL (7.4-10.4); PLATELET COUNT 91 10x3/uL (130-400); RDW 17.5 % (11.5-14.5); WBC 23.9 10x3/uL (4.8-10.8)
[2016-12-05 06:19] LABS: CALC OSMOLALITY 279 mosm/kg (275-300); CALCIUM 8.4 mg/dL (8.5-10.1); CARBON DIOXIDE 29.5 mmol/L (21.0-32.0); CHLORIDE - SERUM 100 mmol/L (98-107); CREATININE - SERUM 0.6 mg/dL (0.6-1.3); MAGNESIUM - SERUM 1.7 mg/dL (1.8-2.4); POTASSIUM - SERUM 3.3 mmol/L (3.5-5.1); SODIUM 137 mmol/L (136-145); UREA NITROGEN 19 mg/dL (7-18); eGFR NON AFRICAN AMERICAN > 90 mL/min (90-120)
[2016-12-05 06:21] LABS: GLUCOSE 175 mg/dL (74-106); PHOSPHOROUS 2.6 mg/dL (2.5-4.9)
[2016-12-05 06:36] LABS: LYMPHOCYTES 1 % (15-50); NEUTROPHILS 95 % (40-80); PLATELET ESTIMATE DECREASED
[2016-12-05 08:31] VITALS: BP 162/90
--- NOTE | 2016-12-05 09:50 | NUR ---
SCHEDULED MEDICATIONS ADMINISTERED CRUSHED IN APPLESAUCE AT THIS TIME. RIGHT CHEST TUBE TO 20CM OF SUCTION PER ORDER. OXYGEN ON 4L VIA NC. PT CONFUSED TO TIME, PLACE AND SITUATION AND EXPERIENCING VISUAL HALLUCINATIONS. CALL LIGHT IN REACH, DENIES NEEDS AT THIS TIME. WILL CONTINUE WITH PLAN OF CARE.
--- NOTE | 2016-12-05 12:12 | NUR ---
FSBS 184 AT THIS TIME AND TREATED PER SLIDING SCALE.
[2016-12-05 12:14] VITALS: BP 153/96
--- NOTE | 2016-12-05 13:57 | NUR ---
PRN ATIVAN ADMINISTERED AT THIS TIME FOR ANXIETY AND HALLUCINATIONS. FAMILY AND FRIEND AT BEDSIDE. WILL CONTINUE [facility] PLAN OF CARE.
--- NOTE | 2016-12-05 15:00 | NUR ---
CONTINUES TO HAVE VISUAL HALLUCINATIONS AT THIS TIME.
[2016-12-05 16:28] VITALS: BP 132/82
--- NOTE | 2016-12-05 19:30 | NUR ---
RECIEVED SHIFT REPORT. PT IS LYING IN BED. PT IS ORIENTED TO SELF ONLY AT THIS TIME. O2 @ 4 PER NASAL CANNULA. SCD'S OFF AT THIS TIME. IV IS PATENT AND FLUIDS ARE RUNNING PER ORDER. PALOMO IS DRAINING URINE BY GRAVITY. CHEST TUBE TO RIGHT SIDE PATENT WITH SITE C/D/I. PT DENIES ANY PAIN AT THIS TIME. NO NEEDS ARE VERBALIZED AT THIS TIME. WILL CONTINUE TO MONITOR. SIDE RAILS ARE UP X 2. BED IS IN LOWEST POSITION. BED ALARM IS ON FOR SAFETY. CALL LIGHT IS WITHIN REACH.
[2016-12-05 20:00] VITALS: BP 144/83
--- NOTE | 2016-12-05 20:49 | NUR ---
SHIFT ASSESSMENT COMPLETED. NIGHT MEDS GIVEN WITH NO PROBLEMS. NO NEEDS ARE VOICED. WILL MONITOR. SIDE RAILS X 2. BED LOW. BED ALARM ON. CALL LIGHT IN REACH.
[2016-12-06] VITALS: BP 164/95
[2016-12-06 04:00] VITALS: BP 160/95
--- NOTE | 2016-12-06 04:16 | NUR ---
PT CHEST TUBE CLAMPED OFF AT THIS TIME PER ORDERS. WILL MONITOR.
[2016-12-06 05:50] LABS: BASOPHILS 0.1 % (0-2); CALC OSMOLALITY 274 mosm/kg (275-300); CALCIUM 9.2 mg/dL (8.5-10.1); CARBON DIOXIDE 27.7 mmol/L (21.0-32.0); CHLORIDE - SERUM 99 mmol/L (98-107); CREATININE - SERUM 0.6 mg/dL (0.6-1.3); EOSINOPHILS 0 % (0-7); GLUCOSE 162 mg/dL (74-106); HEMATOCRIT 36.7 % (36.0-48.0); HEMOGLOBIN 11.9 g/dL (12-16); IMMATURE GRANULOCYTES 0.6 % (0-5); LYMPHOCYTES 3.6 % (15-50); MCH 29.2 pg (26.0-34.0); MCHC 32.4 g/dL (31.0-37.0); MCV 90.2 fL (80.0-100.0); MONOCYTES 3.2 % (2-11); NEUTROPHILS 92.5 % (40-80); PLATELET COUNT 141 10x3/uL (130-400); RBC 4.07 10x6/uL (4.00-5.40); RDW 17.5 % (11.5-14.5); SODIUM 135 mmol/L (136-145); UREA NITROGEN 16 mg/dL (7-18); WBC 36.8 10x3/uL (4.8-10.8); eGFR NON AFRICAN AMERICAN > 90 mL/min (90-120)
[2016-12-06 05:54] LABS: POTASSIUM - SERUM 3.6 mmol/L (3.5-5.1)
[2016-12-06 08:33] VITALS: BP 117/60
--- NOTE | 2016-12-06 08:55 | NUR ---
CHEST TUBE REMOVED BY RADIOLOGIST NURSE. PRESSURE DRESSING APPLIED.
--- NOTE | 2016-12-06 09:00 | NUR ---
ASSESSMENT COMPLETE. L PORT PATENT. NS WITH 20 KCL INFUSING AT 50 CC/HR VIA PUMP. PALOMO PATENT DRAINING YELLOW URINE. O2 4L NC IN USE. QUILL MACHINE OPERATOR SHOWING ST WITH PAC'S AND INVERTED T WAVE. BED ALARM IN USE.
[2016-12-06 12:41] VITALS: BP 157/85
--- NOTE | 2016-12-06 13:31 | NUR ---
NUTRITION MONITORING & EVAL CHART REVIEWED. CERAMICS TECHNICIAN REPORTS PT NOT EATING BREAKFAST OR LUNCH TODAY. TUBE FEEDS DC'D. WILL CONTINUE TO PROVIDE DIET, MONITOR INTAKE. RD FOLLOWING
--- NOTE | 2016-12-06 15:10 | NUR ---
VERY AGITATED AT THIS TIME. STATES THAT EVERYONE IS BEING HELD HOSTAGE IN A HALF-WAY. ATIVAN GIVEN SLOW IVP.
[2016-12-06 15:53] VITALS: BP 168/98
--- NOTE | 2016-12-06 17:30 | NUR ---
RESTING QUIETLY WITH EYES CLOSED. RESP EVEN,NONLABORED. REFUSING TO WEAR SCD'S AND KEEP COVERS ON AND STAY COVERED.
--- NOTE | 2016-12-06 19:20 | NUR ---
RECIEVED SHIFT REPORT. PT IS LYING IN BED. PT IS ORIENTED TO SELF AND PLACE ONLY AT THIS TIME. O2 @ 4 PER NASAL CANNULA. PALOMO IS DRAINING URINE BY GRAVITY. DRESSING TO RIGHT LATERAL SIDE C/D/I. PT DENIES ANY PAIN AT THIS TIME. SCD'S OFF AT THIS TIME. NO NEEDS ARE VERBALIZED AT THIS TIME. WILL CONTINUE TO MONITOR. SIDE RAILS ARE UP X 2. BED IS IN LOWEST POSITION. BED ALARM IS ON FOR SAFETY. CALL LIGHT IS WITHIN REACH.
[2016-12-06 20:03] VITALS: BP 153/86
[2016-12-07 04:00] VITALS: BP 168/96
[2016-12-07 05:36] LABS: BASOPHILS 0 % (0-2); EOSINOPHILS 0 % (0-7); HEMATOCRIT 36.9 % (36.0-48.0); HEMOGLOBIN 12.3 g/dL (12-16); IMMATURE GRANULOCYTES 0.8 % (0-5); LYMPHOCYTES 3.9 % (15-50); MCH 29.6 pg (26.0-34.0); MCHC 33.3 g/dL (31.0-37.0); MCV 88.9 fL (80.0-100.0); MEAN PLATELET VOLUME 11.8 fL (7.4-10.4); MONOCYTES 2.1 % (2-11); NEUTROPHILS 93.2 % (40-80); PLATELET COUNT 167 10x3/uL (130-400); RBC 4.15 10x6/uL (4.00-5.40); RDW 17.3 % (11.5-14.5); WBC 33.2 10x3/uL (4.8-10.8)
[2016-12-07 06:03] LABS: ALBUMIN 1.9 g/dL (3.4-5.0); ALKALINE PHOSPHATASE 145 U/L (46-116); ALT (SGPT) 31 U/L (10-68); CALC OSMOLALITY 269 mosm/kg (275-300); CALCIUM 9.1 mg/dL (8.5-10.1); CARBON DIOXIDE 25.4 mmol/L (21.0-32.0); CHLORIDE - SERUM 94 mmol/L (98-107); CREATININE - SERUM 0.6 mg/dL (0.6-1.3); GLUCOSE 177 mg/dL (74-106); POTASSIUM - SERUM 3.3 mmol/L (3.5-5.1); PROTEIN - SERUM 7.2 g/dL (6.4-8.2); SODIUM 132 mmol/L (136-145); UREA NITROGEN 15 mg/dL (7-18); eGFR NON AFRICAN AMERICAN > 90 mL/min (90-120)
--- NOTE | 2016-12-07 07:45 | NUR ---
ASSESSMENT COMPLETE. L PORT PATENT. NS WITH 20 KCL INFUSING AT 50 CC/HR VIA PUMP. FOOD COUNTER WORKER SHOWING ST WITH PACS AND INVERTED T WAVE 103 PER TECH. REFUSING TO WEAR SCD'S. PALOMO PATENT DRAINING BRANDY COLORED URINE. BED ALARM IN USE. O2 4L NC IN USE.
[2016-12-07 08:25] VITALS: BP 111/71
--- NOTE | 2016-12-07 11:00 | NUR ---
NO CHANGES NOTED AT PRESENT.
--- NOTE | 2016-12-07 13:48 | NUR ---
Rehab Note- Acute Rehab prescreen order received. The patient is noted to be having some hallucinations. Not participating well with therapy or following commands well at this time. Will follow the patient at this time. Thank you for this referral! María Dial RN Clinical Liaison, [facility] Rehab
--- NOTE | 2016-12-07 14:22 | NUR ---
HUONG REASSESSMENT NOTE: IP REHAB IS WATCHING PATIENT. WILL RE-EVAL TOMORROW. CM WENT TO PATIENTS ROOM AND SHE STATED SHE WANTS TO GO TO REHAB TO GET STRONGER PATIENT DID FOLLOW COMMANDS AT THIS TIME. HUONG Motta
[2016-12-07 15:07] VITALS: BP 116/70
[2016-12-07 16:30] VITALS: BP 116/82
--- NOTE | 2016-12-07 17:30 | NUR ---
NO CHANGES NOTED AT PRESENT.
[2016-12-07 19:00] VITALS: BP 116/77
--- NOTE | 2016-12-07 19:05 | NUR ---
HEARD LOUD NOISE AND FOUND PATIENT LAYING IN FLOOR BESIDE BED LAYING ON RIGHT SIDE WITH RIGHT ARM UNDERNEATH BODY. BLOOD NOTED ON FLOOR FROM LACERATION TO R EYEBROW. PATIENT STATES SHE WAS TRYING TO GO TO BATHROOM TO HAVE BOWEL MOVEMENT. ASSISTED BACK TO BED AND PATIENT CLEANED. JL MAT PLACED UNDER PATIENT.
--- NOTE | 2016-12-07 19:25 | NUR ---
RECIEVED SHIFT REPORT. ASSISTED IN GETTING PT BACK TO BED AFTER A FALL. PT IS ALERT TO SELF AND PLACE AT THIS TIME. IV IS PATENT AND FLUIDS ARE RUNNING PER ORDER. PALOMO IS DRAINING URINE BY GRAVITY. PT DENIES ANY PAIN AT THIS TIME. SCD'S ARE OFF AT THIS TIME. A JL MAT IS PLACED UNDER PT TO AID IN FALL PRECAUTION. NO NEEDS ARE VOICED. AT THIS TIME. WILL CONTINUE TO MONITOR. SIDE RAILS ARE UP X 2. BED IS IN LOWEST POSITION. BED ALARM IS ON FOR SAFETY. CALL LIGHT IS WITHIN REACH.
--- NOTE | 2016-12-07 19:30 | NUR ---
LATOSHA LARA NOTIFIED OF FALL WITH INJURY. ORDER RECIEVED FOR CT OF HEAD WITHOUT CONTRAST. OVEN PRESS TENDER, BILL NOTIFIED.
--- NOTE | 2016-12-07 19:45 | NUR ---
SHABBIR FORTE (CAREGIVER) NOTIFIED OF FALL AND ORDER FOR CT OF HEAD.
[2016-12-08] VITALS: BP 144/74
[2016-12-08 04:00] VITALS: BP 167/98
[2016-12-08 05:29] LABS: BASOPHILS 0 % (0-2); EOSINOPHILS 0 % (0-7); HEMATOCRIT 33.8 % (36.0-48.0); HEMOGLOBIN 11.3 g/dL (12-16); IMMATURE GRANULOCYTES 0.6 % (0-5); LYMPHOCYTES 3.5 % (15-50); MCH 30.1 pg (26.0-34.0); MCHC 33.4 g/dL (31.0-37.0); MCV 89.9 fL (80.0-100.0); MEAN PLATELET VOLUME 12.2 fL (7.4-10.4); MONOCYTES 1.4 % (2-11); NEUTROPHILS 94.5 % (40-80); PLATELET COUNT 156 10x3/uL (130-400); RBC 3.76 10x6/uL (4.00-5.40); RDW 17.4 % (11.5-14.5); WBC 26.5 10x3/uL (4.8-10.8)
[2016-12-08 06:12] LABS: ALBUMIN 1.7 g/dL (3.4-5.0); ALKALINE PHOSPHATASE 167 U/L (46-116); ALT (SGPT) 30 U/L (10-68); CALC OSMOLALITY 271 mosm/kg (275-300); CALCIUM 8.7 mg/dL (8.5-10.1); CHLORIDE - SERUM 98 mmol/L (98-107); CREATININE - SERUM 0.5 mg/dL (0.6-1.3); GLUCOSE 191 mg/dL (74-106); POTASSIUM - SERUM 3.3 mmol/L (3.5-5.1); PROTEIN - SERUM 6.5 g/dL (6.4-8.2); SODIUM 133 mmol/L (136-145); UREA NITROGEN 16 mg/dL (7-18); eGFR NON AFRICAN AMERICAN > 90 mL/min (90-120)
--- NOTE | 2016-12-08 07:55 | NUR ---
PT CONFUSED AT TIMES RESP EVEN AND NONLABORED IV TO RIGHT HAND PATENT AND INTACT BED AT LOWEST SETTING CALL LIGHT WITHIN REACH AT THIS TIME
[2016-12-08 08:05] VITALS: BP 141/77
[2016-12-08 11:36] VITALS: BP 128/70
[2016-12-08 16:03] VITALS: BP 137/66
[2016-12-08 19:00] VITALS: BP 137/81
--- NOTE | 2016-12-08 19:47 | NUR ---
IVIG INCREASES PER PROTOCOL, NICOLE WELL, DENIES NEEDS
--- NOTE | 2016-12-08 19:50 | NUR ---
LYING IN BED WITH EYES CLOSED, NO DISTRESS NOTED, L PORT IV INFUSING, TELEMETRY IN PLACE, EASILY AROUSED, DENIES NEEDS, SR'S UP, ALARM ON, CL IN REACH, WILL MONITOR
--- NOTE | 2016-12-08 21:46 | NUR ---
DENIES PAIN OR NEEDS AT THIS TIME, FALL PRECAUTIONS IN PLACE, CL IN REACH
--- NOTE | 2016-12-08 23:48 | NUR ---
RESTING WITH EYES CLOSED, RESP WITH EASE, NO DISTRESS NOTED, FALL PRECAUTIONS IN PLACE, ALARM ON, CL IN REACH
[2016-12-09] VITALS: BP 146/83
[2016-12-09 04:00] VITALS: BP 162/92
--- NOTE | 2016-12-09 04:50 | NUR ---
PT THREW TELEMETRY BOX IN TRASH, REFUSES TO WEAR, STATES "I DON'T WANT TO WEAR THAT DAMN THING"
[2016-12-09 05:51] LABS: BASOPHILS 0 % (0-2); EOSINOPHILS 0 % (0-7); HEMOGLOBIN 10.8 g/dL (12-16); IMMATURE GRANULOCYTES 0.7 % (0-5); LYMPHOCYTES 3.7 % (15-50); MCH 29.7 pg (26.0-34.0); MCHC 32.7 g/dL (31.0-37.0); MCV 90.7 fL (80.0-100.0); MEAN PLATELET VOLUME 12.1 fL (7.4-10.4); MONOCYTES 1.8 % (2-11); NEUTROPHILS 93.8 % (40-80); PLATELET COUNT 175 10x3/uL (130-400); RBC 3.64 10x6/uL (4.00-5.40); RDW 17.8 % (11.5-14.5); WBC 31.7 10x3/uL (4.8-10.8)
[2016-12-09 06:30] LABS: ALBUMIN 1.7 g/dL (3.4-5.0); ALKALINE PHOSPHATASE 212 U/L (46-116); CALC OSMOLALITY 268 mosm/kg (275-300); CALCIUM 8.9 mg/dL (8.5-10.1); CARBON DIOXIDE 24.7 mmol/L (21.0-32.0); CHLORIDE - SERUM 98 mmol/L (98-107); CREATININE - SERUM 0.5 mg/dL (0.6-1.3); GLUCOSE 148 mg/dL (74-106); POTASSIUM - SERUM 3.6 mmol/L (3.5-5.1); PROTEIN - SERUM 6.5 g/dL (6.4-8.2); SODIUM 133 mmol/L (136-145); UREA NITROGEN 13 mg/dL (7-18); eGFR NON AFRICAN AMERICAN > 90 mL/min (90-120)
[2016-12-09 06:31] LABS: ALT (SGPT) 49 U/L (10-68)
--- NOTE | 2016-12-09 07:10 | NUR ---
PT REC'D FROM [facility]. RESTING IN BED WITH EYES CLOSED. ALER TO SELF, PLACE, AND TIME OF DAY ONLY. EASILY REORIENTED TO SITUATION. L CHEST PORT FREE OF REDNESS AND SWELLING. LUNG SOUNDS CLEAR AND EQUAL BILAT. REGULAR HEART RATE AND RHYTHM. BOWEL SOUND ACTIVE X4 QUADRANTS. +2 PEDAL PULSES BILAT. DRESSING TO R FLANK CDI. BED LOW, CALL LIGHT IN REACH, DENIES NEEDS. CPOC.
[2016-12-09 08:04] VITALS: BP 121/74
--- NOTE | 2016-12-09 09:39 | NUR ---
This patient is inappropriate for the IRF at this time due to behavior issues and she still has a chest tube. Rehab will continue to follow if physician desires. Pretty Navarrete RN Clinical Liaison, Rehab
--- NOTE | 2016-12-09 11:11 | NUR ---
MORNING MEDS PASSED AT THIS TIME. PT RESTING IN BED WATCHING TV. REPOSITIONED UP IN BED. BED LOW, CALL LIGHT IN REACH, DENIES NEEDS. CPOC.
--- NOTE | 2016-12-09 12:10 | NUR ---
CURRENT FSBS 209. 4 UNITS OF INSULIN ADMINISTERED PER SS. PT REPOSITIONED UP IN BED. LUNCH TRAY SET UP. BED LOW, CALL LIGHT IN REACH, DENIES NEEDS. CPOC.
[2016-12-09] MEDS ORDERED: XOPENEX 1.1.25 MG/3 UPD (12:22)
[2016-12-09] MEDS ORDERED: BROVANA15 MCG/2 M INH (12:22)
[2016-12-09] MEDS ORDERED: RACEMIC EPI 2.0.5 ML UPD (12:22)
[2016-12-09] MEDS ORDERED: ATROVENT 0.02%2.5 ML UPD (12:22)
[2016-12-09] MEDS ORDERED: SOLU-MEDRO40 MG/1 M1 IV (12:23)
[2016-12-09] MEDS ORDERED: FLORAJEN3 CAPS460 MG PO (12:23)
[2016-12-09] MEDS ORDERED: GLUCAGEN1 MG/VIAL SC (12:24)
[2016-12-09] MEDS ORDERED: GLUCAGEN1 MG/VIAL IM (12:24)
[2016-12-09] MEDS ORDERED: HUMULIN R100 U/ML SC (12:24)
[2016-12-09 12:26] VITALS: BP 116/68
--- NOTE | 2016-12-09 14:59 | NUR ---
CM REASSESSMENT NOTE; PATIENT IS DISCHARGING TO IP REHAB TODAY.
[2016-12-09 15:47] VITALS: BP 156/94
--- NOTE | 2016-12-09 18:09 | NUR ---
REPORT GIVEN TO HILDA RASHID, IN REHAB. WILL TRANSFER PT SHORTLY.
--- NOTE | 2016-12-09 18:46 | NUR ---
DC INSTRUCTIONS DISCUSSED WITH PT AT THIS TIME. L CHEST PORT SALINE LOCKED BY HILDA GAFFNEY. PAPERS SIGNED WITHOUT QUESTIONS OR CONCERNS VOICED. ESCORTED OUT BY [facility], VIA .
== END 2016-12-09 18:48 | DRG 166 ==
LOC: D.ER 10:58 → D.MS 14:19 → D.ICU 14:19 → D.MS 12-04 16:48
PROVIDERS: Emergency Medicine; Family Medicine; Family Medicine Adult Medicine; Internal Medicine Pulmonary Disease; Surgery; ADMIT Family Medicine
PROC: 0T9B70Z Drainage of Bladder with Drainage Device, Via Natural or Artificial Opening (ICD-10-PCS; principal; 2016-11-25)
PROC: 0B718DZ Dilation of Trachea with Intraluminal Device, Via Natural or Artificial Opening Endoscopic (ICD-10-PCS; 2016-11-26)
PROC: 5A1935Z Respiratory Ventilation, Less than 24 Consecutive Hours (ICD-10-PCS; 2016-11-26)
PROC: 0BJ08ZZ Inspection of Tracheobronchial Tree, Via Natural or Artificial Opening Endoscopic (ICD-10-PCS; 2016-11-26)
PROC: 0BH17EZ Insertion of Endotracheal Airway into Trachea, Via Natural or Artificial Opening (ICD-10-PCS; 2016-11-29)
PROC: 5A1955Z Respiratory Ventilation, Greater than 96 Consecutive Hours (ICD-10-PCS; 2016-11-29)
PROC: 0W9930Z Drainage of Right Pleural Cavity with Drainage Device, Percutaneous Approach (ICD-10-PCS; 2016-12-02)
DX: J98.59 Other diseases of mediastinum, not elsewhere classified (principal); J18.9 Pneumonia, unspecified organism; J96.22 Acute and chronic respiratory failure with hypercapnia; J96.21 Acute and chronic respiratory failure with hypoxia; C34.90 Malignant neoplasm of unspecified part of unspecified bronchus or lung; J44.1 Chronic obstructive pulmonary disease with (acute) exacerbation; I24.8 Other forms of acute ischemic heart disease; J44.0 Chronic obstructive pulmonary disease with (acute) lower respiratory infection; J95.811 Postprocedural pneumothorax; J39.8 Other specified diseases of upper respiratory tract; F17.200 Nicotine dependence, unspecified, uncomplicated; E86.0 Dehydration; I10 Essential (primary) hypertension; E78.5 Hyperlipidemia, unspecified; E87.6 Hypokalemia; K21.9 Gastro-esophageal reflux disease without esophagitis; D64.81 Anemia due to antineoplastic chemotherapy; R00.0 Tachycardia, unspecified; Y83.8 Other surgical procedures as the cause of abnormal reaction of the patient, or of later complication, without mention of misadventure at the time of the procedure

== ENCOUNTER 2016-12-09 18:40 | Inpatient (IN) | payer MEDICARE ==
[~2016-12-09] VITALS: Ht 160 cm; Wt 61.2 kg
[~2016-12-09 18:40] MED LIST changes: +ATROVENT 0.02%2.5 ML UPD; +BROVANA15 MCG/2 M INH; +CELEXA10 MG PO; +FLORAJEN3 CAPS460 MG PO; +FUROSEMIDE20 MG PO; +GLUCAGEN1 MG/VIAL IM; +GLUCAGEN1 MG/VIAL SC; +HUMULIN R100 U/ML SC; +HYSINGLA ER20 MG PO; +PHENERGAN25 M1 PO; +PULMICORT0.5 MG/21 INH; +RACEMIC EPI 2.0.5 ML UPD; +SOLU-MEDRO40 MG/1 M1 IV; +XOPENEX 1.1.25 MG/3 UPD; +ZOFRAN4 MG PO
--- NOTE | 2016-12-09 19:30 | NUR ---
RECEIVED REPORT FROM NURSE STAFF,STATE PT ARRIVED TO FLOOR AT 1840 WITH ICU NURSE VIA WHEELCHAIR.PT IS ALERT, BUT CONFUSED @ TIMES.
--- NOTE | 2016-12-10 01:15 | NUR ---
PT FSBS IS 167, GAVE 2 UNITS HUMULIN.
[2016-12-10 01:19] VITALS: BMI 23.9
--- NOTE | 2016-12-10 01:23 | NUR ---
PT IN BED WITH EYES OPEN. DRESSING AND MELGAR NEEDLE TO LEFT CHEST PORT CHANGED USING STERILE TECHNIQUE. MELGAR NEEDLE PLACED AND DRAWS/FLUSHES WITHOUT DIFFICULTY. DRESSING DATED AND REINFORCED AT TUBING SIDE. NO COMPLAINTS OR CONCERNS NOTED. CALL LIGHT NOTED.
--- NOTE | 2016-12-10 01:44 | NUR ---
PT ARRIVED TO FLOOR AT 1840, WITH ICU NURSE VIA WHEELCHAIR. PT ALERT AND ORIENTED.
[2016-12-10 06:44] LABS: BASOPHILS 0 % (0-2); EOSINOPHILS 0 % (0-7); HEMOGLOBIN 11.4 g/dL (12-16); IMMATURE GRANULOCYTES 0.6 % (0-5); LYMPHOCYTES 3.2 % (15-50); MCH 29.7 pg (26.0-34.0); MCHC 32.6 g/dL (31.0-37.0); MCV 91.1 fL (80.0-100.0); MEAN PLATELET VOLUME 12.3 fL (7.4-10.4); MONOCYTES 1.4 % (2-11); NEUTROPHILS 94.8 % (40-80); PLATELET COUNT 208 10x3/uL (130-400); RBC 3.84 10x6/uL (4.00-5.40); RDW 17.6 % (11.5-14.5); WBC 31.9 10x3/uL (4.8-10.8)
[2016-12-10 06:49] LABS: INR 1.07 (0.85-1.17); PROTIME 13.8 SECONDS (11.6-15.0)
[2016-12-10 06:53] LABS: CALC OSMOLALITY 269 mosm/kg (275-300); CALCIUM 9.2 mg/dL (8.5-10.1); CHLORIDE - SERUM 96 mmol/L (98-107); GLUCOSE 140 mg/dL (74-106); POTASSIUM - SERUM 3.7 mmol/L (3.5-5.1); SODIUM 134 mmol/L (136-145); UREA NITROGEN 13 mg/dL (7-18); eGFR NON AFRICAN AMERICAN 90 mL/min (90-120)
[2016-12-10 06:54] LABS: CREATININE - SERUM 0.7 mg/dL (0.6-1.3)
--- NOTE | 2016-12-10 07:03 | NUR ---
RESTING QUIETLY IN BED. EYES CLOSED. CALL LIGHT IN REACH
[2016-12-10 08:00] VITALS: BP 119/95
--- NOTE | 2016-12-10 09:23 | NUR ---
PATIENT ALERT/ORIENT X2. VERY SOFT SPOKEN. BED ALARM ON. CALL LIGHT WITHIN REACH. VOICES NO NEEDS AT THIS TIME. OXYGEN ON AT 4L PER N/C. PO 95%. LEFT DOUBLE LUMAN INFUSHA PORT LEFT CHEST. PALOMO STONEY, DRAINGING DARK YELLOW URINE. LEFT SIDE OF BUTTOM HAS A BLACK ESCAR AREA MEASURING 6.5CM LONG BY 4CM WIDE.
--- NOTE | 2016-12-10 10:40 | NUR ---
OCCUPATIOANL THERAPIST IN ROOM, HELPING PATIENT WITH A SHOWER. MODERATE AMOUNT OF ASST WITH SHOWER.
--- NOTE | 2016-12-10 11:55 | NUR ---
GLUCOSE LEVEL 144. NO SLIDING SCALE INSULIN GIVEN
--- NOTE | 2016-12-10 12:15 | NUR ---
WOUND CARE: NOTED AN UNSTAGEABLE PRESSURE INJURY TO LEFT SACRUM MEASURING 5.5CM X 6CM IT IS COVERED WITH BLACK ESCHAR. PT STATES IT IS TENDER WHEN SITTING. ORDERED AN AIR OVERLAY MATTRESS FOR BED AND SHE NOW HAS A CUSHION FOR HER WHEELCHAIR. MEPILEX SACRAL PADDED DRESSING TO BE APPLIED TO CUSHION AND PROTECT WOUND. INSTRUCTED PT TO REPOSITION/TURN Q2H WHILE IN BED (REMOVING PRESSURE FROM AREA) AND Q1HOUR WHILE UP IN WHEELCHAIR. SHE VOICED HER UNDERSTANDING. WOUND CARE WILL MONITOR.
--- NOTE | 2016-12-10 13:47 | NUR ---
MEPILEX DRESSING APPLIED TO COCCYX AREA.
--- NOTE | 2016-12-10 15:00 | NUR ---
PATIENT HAS A FRIEND VISITING IN ROOM. FRIEND BROUGHT PATIENT SOME ICE CHIPS. THIS NURSE TALKED TO PATIENT AND FRIEND IN REGARDS TO HONEY THICKEN LIQS. ADVISED AGANTS ICE CHIPS.
[2016-12-10 15:10] VITALS: Ht 160 cm; Wt 61.2 kg
--- NOTE | 2016-12-10 15:34 | NUR ---
PATIENT HADS MULTIPLE VISITORS IN ROOM AT THIS TIME. PATIENT SITTING UP AT THE SIDE OF THE BED.
--- NOTE | 2016-12-10 15:53 | NUR ---
PATIENTS SPOSE IN ROOM. STATES THAT PATIENT HAS LOST HER CELL PHONE. PATIENT ASKED TO LOOK THROUGH HER BAGS IN ROOM. THIS NURSE CALLED UP TO [facility] WHERE PATIENT WAS ADMITTED LAST NIGHT. STAFF WENT AND CHECKED LOST AND FOUND AND LAUDRY. NO CELL PHONE FOUND
--- NOTE | 2016-12-10 16:19 | NUR ---
PATIENT ADMITTED TO REHAB FROM ACUTE FLOOR. DR. MCCLELLAND IN [facility] IS HER PCP. DME AT HOME IS , WALKER, CANE, NEBULIZER AND O2 THAT SHE GETS FROM [facility]. [facility] IS HER PHARMACY AND AT DISCHARGE SHE HAS CHOSEN [facility]. WILL CONTINUE TO FOLLOW WITH PATIENT. HER PLANS FOR DISCHARGE IS TO RETURN HOME AND HER FRIEND WILL ASSIST
--- NOTE | 2016-12-10 16:38 | NUR ---
THIS NURSE PUTTING ON FIRST STEP MATTRESS. MATTRESS HAS A BROKEN ZIPPER. [employer] CALLED AND ASKED TO BRING UP ANOTHER MATTRESS
--- NOTE | 2016-12-10 17:12 | NUR ---
CENTRAL SUPPLY HERE. BROUGHT DIFFERENT FIRST STEP MATTRESS. PUT ON BED
--- NOTE | 2016-12-10 18:13 | NUR ---
GLUCOSE LEVEL 212. FOUR UNITS OF SLIDING SCALE INSULIN GIVEN.
--- NOTE | 2016-12-10 19:00 | NUR ---
PATIENT IN BED, AWAKE. RESTING ON AIR MATTRESS OVERLAY. DENIES CURRENT NEEDS.
[2016-12-10 20:16] VITALS: BP 124/73
--- NOTE | 2016-12-10 20:40 | NUR ---
ASSESSMENT AND HS MEDS COMPLETE. MEPILEX SACRAL DRESSING IN PLACE TO LEFT BUTTOCK UNSTAGEABLE ESCHAR/ULCER. SAYS IT FEELS BETTER SINCE WOUND CARE NURSE APPLIED DRESSING EARLIER TODAY. TURNED PATIENT TO RIGHT SIDELYING POSITION FOR PRESSURE RELIEF. PALOMO CATH REMAINS PATENT TO BSD BAG WITH DARK YELLOW URINE FLOWING. DAY SHIFT REPORTED IT WAS SLIGHTLY PINK TINGED EARLIER, POSSIBLY DUE TO INADVERTENT CATH TRAUMA DURING THERAPY.
--- NOTE | 2016-12-10 22:05 | NUR ---
RESTING QUIETLY ON RIGHT SIDE, EYES CLOSED.
--- NOTE | 2016-12-11 00:35 | NUR ---
FSBS 165. GAVE PATIENT 2 UNITS REGULAR S/S INSULIN SC IN RIGHT UPPER ARM.
--- NOTE | 2016-12-11 02:00 | NUR ---
RESTING IN BED ON RIGHT SIDE. APPEARS COMFORTABLE.
--- NOTE | 2016-12-11 06:00 | NUR ---
FSBS 129. GAVE PATIENT SCHEDULED PO MEDS. J.KING PUGAT NOW HER TO WORK WITH PATIENT IN P/T. THERAPIST IS GOING TO ASSIST HER TO DRESS FOR THERAPY.
[2016-12-11 06:28] LABS: INR 1.08 (0.85-1.17); PROTIME 13.8 SECONDS (11.6-15.0)
[2016-12-11 07:30] VITALS: BP 118/63
--- NOTE | 2016-12-11 07:30 | NUR ---
PT IS UP PARTICIPATING WITH PT AT THIS TIME. NO ACUTE DISTESS NOTED. O2 IS ON @ 4LPM PER NC. NO SOB NOTED. PALOMO CATH IS PATENT AND DRAINING TO A GRAVITY BAG.
--- NOTE | 2016-12-11 08:00 | NUR ---
SITTING UP IN WC.EATING BREAKFAST.CL IN REACH.
--- NOTE | 2016-12-11 08:57 | NUR ---
PT IS RESTING IN BED WITH EYES CLOSED. O2 ON. NO SOB NOTED. SR'S ARE UP X 3 IN BED. CALL LIGHT AND BEDSIDE TABLE ARE WITHIN EASY REACH. 1ST STEP MATTRESS IN USE.
--- NOTE | 2016-12-11 11:59 | NUR ---
PT IS FEEDING SELF LUNCH. NO ACUTE DISTRESS NOTED.
--- NOTE | 2016-12-11 14:33 | NUR ---
PT IS RESTING IN BED WITH EYES CLOSED. NO DISTRESS NOTED.
--- NOTE | 2016-12-11 16:35 | NUR ---
PT RESTING IN BED WATCHING TV. NO NEEDS VOICED.
[2016-12-11 20:06] VITALS: BP 122/60
--- NOTE | 2016-12-12 04:18 | NUR ---
PT C/O BLADDER FULLNESS, PALOMO RELEASED, DRAINED URINE, PT FELT BETTER.
--- NOTE | 2016-12-12 07:30 | NUR ---
PT IS RESTING IN BED WITH EYES CLOSED. AWOKE EASILY TO VERBAL STIMULI. PT DENIES PAIN OR DISCOMFORT. O2 IS ON @ 2LPM PER NC. NO SOB NOTED. PALOMO CATH IS PATENT AND DRAINING TO A GRAVITY BAG. BLADDER TRAINING IN PROGRESS. DRESSING ON COCCYX IS CDI. SR'S ARE UP X 3 IN BED. CALL LIGHT AND BEDSIDE TABLE ARE WITHIN EASY REACH. 1ST STEP MATTRESS ON BED.
[2016-12-12 07:40] VITALS: BP 127/63
[2016-12-12 08:11] LABS: INR 1.18 (0.85-1.17); PROTIME 14.9 SECONDS (11.6-15.0)
--- NOTE | 2016-12-12 09:21 | NUR ---
SITTING UP IN WC.CL IN REACH.
--- NOTE | 2016-12-12 11:30 | NUR ---
PT IS RESTING IN BED WITH EYES CLOSED. NO DISTRESS NOTED.
--- NOTE | 2016-12-12 13:13 | NUR ---
PT RESTING IN BED AFTER LUNCH. NO COMPLAINT VOICED.
--- NOTE | 2016-12-12 17:46 | NUR ---
PT IS FEEDING SELF SUPPER IN HER ROOM. NO ACUTE DISTRESS NOTED.
--- NOTE | 2016-12-12 21:10 | NUR ---
PT INCONTINENCE, CHANGE LINEN AND GOWN.
[2016-12-13 00:31] VITALS: BP 101/61
--- NOTE | 2016-12-13 01:30 | NUR ---
PT STATES SHE IS UNCOMFORTABLE AND REQUESTED AIR MATTRESS TO BE DEFLATED. ADJUSTED FLOW OF MATTRESS TO BE SOFTER, PT REQUESTS THAT IT NOT BE ON. PT STATES SHE UNDERSTANDS THE NEED TO REDUCE PRESSURE TO HER LEFT BUTTOCK AND TO TURN.
--- NOTE | 2016-12-13 02:20 | NUR ---
PT REST QUIETLY IN BED, EYE CLOSE, CALL LIGHT WITHIN REACH.
[2016-12-13 05:58] LABS: BASOPHILS 0 % (0-2); EOSINOPHILS 0 % (0-7); HEMATOCRIT 31.7 % (36.0-48.0); IMMATURE GRANULOCYTES 0.6 % (0-5); LYMPHOCYTES 5.5 % (15-50); MCH 29.3 pg (26.0-34.0); MCHC 31.5 g/dL (31.0-37.0); MEAN PLATELET VOLUME 11.4 fL (7.4-10.4); MONOCYTES 2.1 % (2-11); NEUTROPHILS 91.8 % (40-80); PLATELET COUNT 173 10x3/uL (130-400); RBC 3.41 10x6/uL (4.00-5.40); WBC 17.8 10x3/uL (4.8-10.8)
--- NOTE | 2016-12-13 06:01 | NUR ---
PALOMO CATH D/C PER ORDER, WITHDREW 10ML OF WATER FROM BALLON, CATHETER REMOVED WITHOUT DIFFICULTY.
[2016-12-13 06:06] LABS: CALC OSMOLALITY 276 mosm/kg (275-300); CALCIUM 8.8 mg/dL (8.5-10.1); CARBON DIOXIDE 31.7 mmol/L (21.0-32.0); CHLORIDE - SERUM 99 mmol/L (98-107); CREATININE - SERUM 0.5 mg/dL (0.6-1.3); GLUCOSE 134 mg/dL (74-106); INR 1.14 (0.85-1.17); POTASSIUM - SERUM 3.3 mmol/L (3.5-5.1); PROTIME 14.5 SECONDS (11.6-15.0); SODIUM 137 mmol/L (136-145); UREA NITROGEN 15 mg/dL (7-18); eGFR NON AFRICAN AMERICAN > 90 mL/min (90-120)
--- NOTE | 2016-12-13 07:12 | NUR ---
RESTING QUIETLY IN BED CALL LIGHT IN REACH
--- NOTE | 2016-12-13 07:30 | NUR ---
PT LYING IN BED EYES CLOSED RESTING QUIETLY. EASILY AROUSED WITH STIMULI. PLEASANT AFFECT, CALL LIGHT IN REACH.
[2016-12-13 08:00] VITALS: BP 118/74
--- NOTE | 2016-12-13 09:30 | NUR ---
PT IN THERAPY
--- NOTE | 2016-12-13 11:30 | NUR ---
PT SITTING UP IN WHEELCHAIR VISITING FAMILY. C/O PAIN EVEN AFTER TYLENOL WILL CALL DR. PETIT FOR SOMETHING STRONGER.
--- NOTE | 2016-12-13 13:40 | NUR ---
PT LYING ON RIGHT SIDE IN BED. PT STATES "AIR MATTRESS IS UNCOMFORTABLE AND IS MAKING HER HURT MORE". WILL CONSULT WENDY (WOUND NURSE) TO SEE IF THERE IS SOMETHING ELSE WE CAN DO. PT WAS ADVISED OF TRAMADOL ORDERED PER DR. PETIT. CALL LIGHT IN REACH.
--- NOTE | 2016-12-13 15:57 | NUR ---
PT IN BED LEFT SIDE EYES CLOSED RESTING QUIETLY. CALL LIGHT IN REACH.
--- NOTE | 2016-12-13 18:24 | NUR ---
PT LYING IN BED RIGHT SIDE EYES CLOSED RESTING QUIETLY. CALL LIGHT IN REACH
[2016-12-13 19:00] VITALS: BP 96/73
--- NOTE | 2016-12-13 20:20 | NUR ---
PT REST IN BED EYE OPEN, DENIES NEEDS.
--- NOTE | 2016-12-13 22:27 | NUR ---
PT TALKING ABOUT PROGRESS TODAY WITH EATING AND DISCHARGE TREATMENT. PT IS POSITIVE AND UPBEAT. ADMINISTERED SOLUMEDROL PUSH.
--- NOTE | 2016-12-13 23:57 | NUR ---
PT SIT UP IN BED AND FILL IN MENU.
--- NOTE | 2016-12-14 02:31 | NUR ---
REST QUIETLY IN BED, EYE CLOSE, BED LOW CALL LIGHT WITHIN REACH.
[2016-12-14 07:07] LABS: INR 1.28 (0.85-1.17); PROTIME 15.9 SECONDS (11.6-15.0)
[2016-12-14 07:30] VITALS: BP 106/61
--- NOTE | 2016-12-14 07:30 | NUR ---
SITTING UP IN WHEELCHAIR. NO CONCERNS VOICED AT THIS TIME. CALL LIGHT IN REACH.
--- NOTE | 2016-12-14 09:51 | NUR ---
LYING IN BED RIGHT SIDE EYES CLOSED, RESTING QUIETLY. EASILY AROUSED WITH STIMULI. ALERT AND ORIENTED X2, REORIENTED TO TIME. CALL LIGHT IN REACH.
--- NOTE | 2016-12-14 12:00 | NUR ---
LYING IN BED EYES CLOSED RESTING QUIETLY. EASILY AROUSED WITH VERBAL STIMULI. CALL LIGHT IN REACH.
--- NOTE | 2016-12-14 14:00 | NUR ---
PT IN THERAPY
--- NOTE | 2016-12-14 16:11 | NUR ---
LYING IN BED EYES CLOSED RESTING QUIETLY. EASILY AROUSED WITH STIMULI. O2 IN PLACE 2L VIA NASAL CANULA. CALL LIGHT IN REACH
--- NOTE | 2016-12-14 19:20 | NUR ---
ASSISTED PT TO BATHROOM AND BACK TO BED.
--- NOTE | 2016-12-14 19:40 | NUR ---
ASSISTED PATIENT TO REPOSITION HIGHER UP IN BED ON AIR MATTRESS. SAYS SHE KEEPS SLIDING DOWN. ELEVATED FOB TO REDUCE SLIDING. SR UP X3. BED ALARM IS ARMED. WATER AND CALL LIGHT ARE IN REACH.
[2016-12-14 20:00] VITALS: BP 131/77
[2016-12-15 00:25] VITALS: BP 140/85
--- NOTE | 2016-12-15 01:08 | NUR ---
REST IN BED WITH EYE CLOSE, BED LOW, CALL LIGHT WITHIN REACH.
--- NOTE | 2016-12-15 07:15 | NUR ---
LYING IN BED RIGHT SIDE EYES CLOSED RESTING QUIETLY. CALL LIGHT IN REACH. O2 ON 3L VIA NC. NO CONCERNS VOICED
[2016-12-15 07:29] LABS: BASOPHILS 0.1 % (0-2); EOSINOPHILS 0 % (0-7); HEMATOCRIT 29.7 % (36.0-48.0); HEMOGLOBIN 9.2 g/dL (12-16); IMMATURE GRANULOCYTES 0.5 % (0-5); LYMPHOCYTES 5.9 % (15-50); MCH 28.9 pg (26.0-34.0); MCV 93.4 fL (80.0-100.0); MEAN PLATELET VOLUME 11.7 fL (7.4-10.4); MONOCYTES 2.5 % (2-11); PLATELET COUNT 174 10x3/uL (130-400); RBC 3.18 10x6/uL (4.00-5.40); RDW 17.1 % (11.5-14.5); WBC 17.5 10x3/uL (4.8-10.8)
[2016-12-15 07:54] LABS: CALC OSMOLALITY 272 mosm/kg (275-300); CALCIUM 9.1 mg/dL (8.5-10.1); CARBON DIOXIDE 29.8 mmol/L (21.0-32.0); CHLORIDE - SERUM 98 mmol/L (98-107); CREATININE - SERUM 0.5 mg/dL (0.6-1.3); GLUCOSE 133 mg/dL (74-106); POTASSIUM - SERUM 3.6 mmol/L (3.5-5.1); SODIUM 135 mmol/L (136-145); UREA NITROGEN 15 mg/dL (7-18); eGFR NON AFRICAN AMERICAN > 90 mL/min (90-120)
[2016-12-15 08:03] LABS: INR 1.52 (0.85-1.17); PROTIME 18.2 SECONDS (11.6-15.0)
[2016-12-15 09:11] VITALS: BP 130/70
--- NOTE | 2016-12-15 09:30 | NUR ---
PT IN THERAPY
--- NOTE | 2016-12-15 11:15 | NUR ---
PT IN GYM WITH PHYS THERAPY.
--- NOTE | 2016-12-15 12:01 | NUR ---
ADMINISTERED 2 UNITS HUMALOG FOR BS 154 RIGHT ARM SUBQ. WAS UNABLE TO DOCUMENT IN EMAR DUE TO STUDENT NURSE DOCUMENTED THAT MED WAS HELD COULD NOT CHANGE TO GIVEN.
--- NOTE | 2016-12-15 13:30 | NUR ---
LYING IN BED EYES CLOSED RESTING QUIETLY. OXYGEN IN PLACE 3L VIA NASAL CANULA. CALL LIGHT IN REACH
--- NOTE | 2016-12-15 13:30 | NUR ---
RESTING QUIETLY.CL IN REACH.
--- NOTE | 2016-12-15 15:11 | NUR ---
LYING IN BED RIGHT SIDE EYES CLOSED RESTING QUIETLY. EASILY AROUSED WITH STIMULI. CALL LIGHT IN REACH. OXYGEN 3L VIA NC IN PLACE.
--- NOTE | 2016-12-15 17:06 | NUR ---
SITTING UP IN BED QUIETLY. OXYGEN STILL ON 3L VIA NASAL CANULA. NO CONCERNS VOICED AT THIS TIME. CALL LIGHT AND BEDSIDE TABLE IN REACH.
--- NOTE | 2016-12-15 19:00 | NUR ---
PATIENT IN BED ON AIR MATTRESS OVERLAY. DENIES NEEDS.
--- NOTE | 2016-12-15 21:40 | NUR ---
IN BED, RESTING QUIETLY ON RIGHT SIDE. NO DISTRESS NOTED.
--- NOTE | 2016-12-16 00:25 | NUR ---
ASSESSMENT BEGUN EARLIER NOW COMPLETE. GAVE PATIENT SCHEDULED HS MEDS WELL ULTRAM 50MG PO FOR PAIN LEVEL OF 8/10 IN BACK AND SHOULDERS. DENIES FURTHER NEEDS. FLUSHED INFUSAPORT WITH NS AFTER DELIVERING IVP SOLU-MEDROL 20MG BY SLOW IVP.
--- NOTE | 2016-12-16 01:00 | NUR ---
PT PRECISION LENS GRINDER APPRENTICE LIGHT, PT UP TO BR WITH WALKER, PT VOIDED BY SELF WITH NO DIFFICULTY, P BACK TO BED, DENIES FURTHER NEEDS, BED IN LOW POSITION, SIDE RAILS X 2, CALL LIGHT IN REACH, BED ALARM ON AND WORKING PROPERLY
--- NOTE | 2016-12-16 02:40 | NUR ---
RESTING QUIETLY IN BED ON BACK, EYES CLOSED. APEARS COMFORTABLE.
--- NOTE | 2016-12-16 06:00 | NUR ---
LAB DRAW FROM INFUSAPORT COMPLETE. BLOOD SUGAR 167. GAVE PATIENT 2 UNITS SLIDING SCALE INSULIN SC IN LEFT UPPER ARM.
[2016-12-16 07:51] LABS: INR 1.96 (0.85-1.17); PROTIME 22.3 SECONDS (11.6-15.0)
[2016-12-16 09:11] VITALS: BP 145/80
--- NOTE | 2016-12-16 10:54 | NUR ---
WOUND CARE REASSESSMENT; UNSTAGEABLE PRESSURE INJURY SHOWS NO CHANGE. MEASUREMENTS REMAIN @ 5.5CM X 6CM X BLACK ESCHAR. NO DRAINAGE IS NOTED. ON THE RIGHT SIDE OF WOUND THERE IS 2 1CM X 1CM AREAS THAT ARE NON-BLANCHABLE AND ARE COVERED WITH YELLOW - NON-VIABLE TISSUE. RECOMMEND SANTYL OINTMENT BE APPLIED TO ALL NECROTIC AREAS DAILY. COVER WTIH WHITE BORDERED GAUZE. SHE IS ON AN AIROVERLAY MATTRESS AND HAS A CUSHION FOR HER WHEEL CHAIR. SHE IS REMINDED TO TURN EVERY 2 HOURS WHILE IN BED - BUT PREFERS TO STAY POSITIONED ON HER BOTTOM. REINSTRUCTED ON THE IMPORTANCE OF TURNING/REPOSITIONING IN ORDER TO RELIEVE PRESSURE AND REDUCE PAIN. SHE VOICED UNDERSTANDING. SHE IS ALSO BEING REMINDED TO SHIFT/REPOSITION Q1H WHILE UP IN WHEELCHAIR. WOUND CARE WILL CONTINUE MONITORING.
--- NOTE | 2016-12-16 13:03 | NUR ---
Nutrition Follow Up: Pt reported that her appetite is okay. She stated that when she eats a larger amount she has much pain. She said that she is not eating very much at a time because of this. Pt agreed to try Ensure with meals. Pt is eating 50% meal avg on a regular diet. +BM 12/12/16. Labs reviewed - Glucose elevated. Meds noted. Wound care note reviewed. Rec continue current diet. Will send Ensure TID. Will continue to honor food preferences. RD will continue to monitor pt progress.
--- NOTE | 2016-12-16 13:15 | NUR ---
PT RESTING IN BED WITH EYES OPEN CALL LIGHT IN REACH NO PROBLEMS PUMA MONITER
--- NOTE | 2016-12-16 18:00 | NUR ---
IN BED CL IN REACH.
[2016-12-16 19:30] VITALS: BP 120/65
--- NOTE | 2016-12-16 19:32 | NUR ---
PT IS RESTING IN BED WITH EYES CLOSED. AWAKENS EASILY TO VERBAL STIMULI. PT DENIES PAIN OR DISCOMFORT AT THIS TIME. VSS. O2 IS ON @ 3LPM NM NC. NO SOB NOTED. SANTYL DRESSING TO LEFT BUTTOCK IS CDI. NO DRAINAGE NOTED. PT RESTING ON A 1ST STEP MATTRESS. SR'S ARE UP X 3 IN BED. CALL LIGHT AND BEDSIDE TABLE ARE WITHIN EASY REACH.
--- NOTE | 2016-12-16 21:16 | NUR ---
PT IS RESTING IN BED EATING MILK AND JASVIR CRACKERS. NO ACUTE DISTRESS NOTED.
--- NOTE | 2016-12-16 23:50 | NUR ---
RESTING IN BED ON AIR MATTRESS OVERLAY. NO DISTRESS NOTED.
--- NOTE | 2016-12-17 02:58 | NUR ---
PT IS RESTING QUIETLY IN BED WITH EYES CLOSED. RESPS ARE EVEN AND UNLABORED. NO ACUTE DISTRESS NOTED.
[2016-12-17 07:11] LABS: INR 2.32 (0.85-1.17); PROTIME 25.6 SECONDS (11.6-15.0)
[2016-12-17 07:26] LABS: CALC OSMOLALITY 273 mosm/kg (275-300); CARBON DIOXIDE 29.6 mmol/L (21.0-32.0); CHLORIDE - SERUM 98 mmol/L (98-107); CREATININE - SERUM 0.6 mg/dL (0.6-1.3); GLUCOSE 125 mg/dL (74-106); POTASSIUM - SERUM 3.5 mmol/L (3.5-5.1); SODIUM 136 mmol/L (136-145); UREA NITROGEN 16 mg/dL (7-18); eGFR NON AFRICAN AMERICAN > 90 mL/min (90-120)
--- NOTE | 2016-12-17 07:29 | NUR ---
RESTING QUIETLY IN BED CALL LIGHT IN REACH
[2016-12-17 08:14] VITALS: BP 138/83
[2016-12-17 08:34] LABS: BASOPHILS 0 % (0-2); EOSINOPHILS 0 % (0-7); HEMATOCRIT 29.9 % (36.0-48.0); HEMOGLOBIN 9.4 g/dL (12-16); IMMATURE GRANULOCYTES 1.4 % (0-5); LYMPHOCYTES 7.7 % (15-50); MCH 29.5 pg (26.0-34.0); MCHC 31.4 g/dL (31.0-37.0); MCV 93.7 fL (80.0-100.0); MEAN PLATELET VOLUME 11.6 fL (7.4-10.4); MONOCYTES 3.2 % (2-11); NEUTROPHILS 87.7 % (40-80); PLATELET COUNT 206 10x3/uL (130-400); RBC 3.19 10x6/uL (4.00-5.40); RDW 17.1 % (11.5-14.5); WBC 22.7 10x3/uL (4.8-10.8)
--- NOTE | 2016-12-17 15:34 | NUR ---
PT RESTING IN BED WITH EYES OPEN CALL LIGHT IN REACH WILL MONITER
--- NOTE | 2016-12-17 19:15 | NUR ---
RESTING IN BED ON RIGHT SIDE ON AIR MATTRESS OVERLAY. NO DISTRESS NOTED.
--- NOTE | 2016-12-17 21:40 | NUR ---
REMAINS IN BED, RESTING QUIETLY.
--- NOTE | 2016-12-17 23:05 | NUR ---
ASSISTED PATIENT UP TO BR TO URINATE. FOUND THAT SHE HAD STRIPPED OFF THE DRESSING TO HER LEFT BUTTOCK DECUB ESCHAR. ON RETURN TO BED, CHANGED DRESSING PER NEW ORDER (SEE DRESSING CHANGE P/I). AND APPLIED FRESH PANTIES WITH POISE PAD. ASSESSMENT AND HS MEDS WERE THEN COMPLETED AND LEFT CHEST INFUSAPORT FLUSHED.
[2016-12-17 23:35] VITALS: BP 138/78
--- NOTE | 2016-12-18 00:05 | NUR ---
RESTING QUIETLY IN BED, EYES CLOSED.
--- NOTE | 2016-12-18 02:05 | NUR ---
RESTING IN BED ON LEFT SIDE. NO DISTRESS EVIDENT.
--- NOTE | 2016-12-18 04:00 | NUR ---
RESTING IN BED, EYES CLOSED. NOW LYING ON RIGHT SIDE. RESPIRATIONS ARE UNLABORED.
--- NOTE | 2016-12-18 05:35 | NUR ---
MEGAN BLOOD FOR LABS FROM LEFT CHEST INFUSAPORT AND THEN FLUSHED PORT. REMAINS PATENT BIDIRECTIONALLY. ASSISTED HER TO PUT ON FRESH OUTER SHORTS. PATIENT SAYS DAUGHTER IS TO BRING HER A FRESH SHIRT LATER TODAY. FSBS 156. GAVE PATIENT 2 UNITS REGULAR SLIDING SCALE INSULIN SC IN LEFT UPPER ARM.
--- NOTE | 2016-12-18 06:53 | NUR ---
RESTING IN BED QUIETLY. CALL LIGHT IN REACH
[2016-12-18 07:45] VITALS: BP 158/88
--- NOTE | 2016-12-18 07:59 | NUR ---
PATIENT SITTING UP IN BED TO EAT BREAKFAST. VOICES NO NEEDS AT THIS TIME. CALL LIGHT WITHIN REACH. OXYGEN ON AT 3L PER N/C. NO RESPITORY DISTRESS NOTED.
[2016-12-18 08:12] LABS: INR 3.1 (0.85-1.17); PROTIME 32.3 SECONDS (11.6-15.0)
--- NOTE | 2016-12-18 10:39 | NUR ---
PATIENT IN REHAB ROOM. WORKING WITH PHYSICAL THERAPIST. DENIES ANY PAIN/DISC AT THIS TIME
--- NOTE | 2016-12-18 11:45 | NUR ---
GLUECOSE LEVEL 126. NO SLIDING SCALE INSULIN GIVEN
--- NOTE | 2016-12-18 13:43 | NUR ---
MEPILEX DRESSING TO UNSTAGABEL ULCER ON COCCXY CHANGED. FIRST STEP MATTRESS ON BED.
--- NOTE | 2016-12-18 15:01 | NUR ---
PRN ULTRUM GIVEN FOR RIGHT SIDE, TORSO PAIN.
--- NOTE | 2016-12-18 17:06 | NUR ---
GLUCOSE LEVEL 169. TWO UNITS OF SLIDING SCALE INSULIN GIVEN
--- NOTE | 2016-12-18 19:30 | NUR ---
PT RESTING IN BED, MEDICATED FOR PAIN. PT ALERT AND CONVERSIVE.
[2016-12-18 20:00] VITALS: BP 149/77
[2016-12-18 22:15] VITALS: BP 145/95
--- NOTE | 2016-12-18 22:25 | NUR ---
LEFT DR. PETIT A MESSAGE REGARDING CHNAGE OF STATUS, RIGHT ARM VERY WEAK, LIFTS LEFT ARM PER COMMAND AND HAS IS ABLE TO SQUEEZE HER HAND. PT HAD BRIEF EPISODE WHERE SHE WAS LETHARGIC DURING A TRANSFER FROM / TO BED. FSBS 178, HR 120'S, OXYGEN. PT IS ALERT, UNABLE TO MOVE RIGHT ARM.
--- NOTE | 2016-12-18 22:45 | NUR ---
DR. PETIT ANSWERED SECOND CALL AND ORDERED CT OF HEAD. ALSO CONFERRED WITH BATTERY INSPECTOR AND RESIDENCY PROGRAM COORDINATOR.
[2016-12-18 23:02] VITALS: BP 127/72
[2016-12-19 06:11] VITALS: BP 121/74
[2016-12-19 06:46] LABS: INR 2.85 (0.85-1.17); PROTIME 30.2 SECONDS (11.6-15.0)
[2016-12-19 07:53] VITALS: BP 128/73
--- NOTE | 2016-12-19 09:40 | NUR ---
PT AM MEDS ADMINISTERED. PT DRESSING TO LEFT BUTTOCK CHANGED. PT DENIES NEEDS. WCTM.
--- NOTE | 2016-12-19 11:59 | NUR ---
PT FSBS 158. PT GIVEN 2 UNITS OF SS INSULIN. WCTM.
--- NOTE | 2016-12-19 13:15 | NUR ---
PT FAMILY IN ROOM, DENIES NEEDS. WCTM.
--- NOTE | 2016-12-19 17:15 | NUR ---
PT FSBS 132. PT GIVEN NO SS INSULIN AT THIS TIME. WCTM.
--- NOTE | 2016-12-19 20:00 | NUR ---
PT. IN BED WITH HOB UP FOR COMFORT AND IS LYING ON A FIRST STEP MATTRESS. PT. DENIES ANY NEEDS AT THIS TIME. ASSESSMENT COMPLETED. CALL LIGHT REMAINS WITHIN REACH.
[2016-12-19 21:36] VITALS: BP 114/68
--- NOTE | 2016-12-19 23:13 | NUR ---
PT. IN BED ON FIRST STEP MATTRESS WITH EYES CLOSED AND RESP. EVEN. CALL LIGHT WITHIN REACH.
--- NOTE | 2016-12-20 03:02 | NUR ---
PT. IN BED ON FIRST STEP MATTRESS AND LYING ON HER RIGHT SIDE. EYES ARE CLOSED AND RESP. EVEN. O2 ON AT 2L/MIN VIA N/C WITHOUT ANY S/S DISTRESS OBSERVED. CALL LIGHT REMAINS WITHIN REACH.
[2016-12-20 07:12] LABS: CALC OSMOLALITY 270 mosm/kg (275-300); CALCIUM 9.3 mg/dL (8.5-10.1); CARBON DIOXIDE 29.6 mmol/L (21.0-32.0); CHLORIDE - SERUM 96 mmol/L (98-107); CREATININE - SERUM 0.6 mg/dL (0.6-1.3); GLUCOSE 135 mg/dL (74-106); POTASSIUM - SERUM 3.7 mmol/L (3.5-5.1); SODIUM 134 mmol/L (136-145); UREA NITROGEN 16 mg/dL (7-18); eGFR NON AFRICAN AMERICAN > 90 mL/min (90-120)
[2016-12-20 07:15] LABS: BASOPHILS 0.1 % (0-2); EOSINOPHILS 0 % (0-7); HEMATOCRIT 30.8 % (36.0-48.0); HEMOGLOBIN 9.6 g/dL (12-16); IMMATURE GRANULOCYTES 1.6 % (0-5); LYMPHOCYTES 6.4 % (15-50); MCHC 31.2 g/dL (31.0-37.0); MCV 93.1 fL (80.0-100.0); MEAN PLATELET VOLUME 10.8 fL (7.4-10.4); MONOCYTES 2.2 % (2-11); NEUTROPHILS 89.7 % (40-80); PLATELET COUNT 260 10x3/uL (130-400); RBC 3.31 10x6/uL (4.00-5.40); RDW 16.7 % (11.5-14.5); WBC 30.9 10x3/uL (4.8-10.8)
--- NOTE | 2016-12-20 07:30 | NUR ---
PT IS RESTING IN BED WITH EYES OPEN. ALERT AND ORIENTED X 3. DENIES ACUTE PAIN OR DISCOMFORT. RESTING ON A 1ST STEP MATTRESS. LEFT CHEST INFUSAPORT NOTED. O2 IS ON @ 3LPM PER NC. NO SOB NOTED. NO DRESSINGS NOTED ON BUTTOCKS. NEW DRESSINGS APPLIED PER ORDERS. SR'S ARE UP X 3 IN BED. CALL LIGHT AND BEDSIDE TABLE ARE WITHIN EASY REACH.
[2016-12-20 08:00] VITALS: BP 109/63
--- NOTE | 2016-12-20 09:36 | NUR ---
PT IS RESTING IN BED WITH EYES OPEN. REFUSING TO DO THERAPY AT THIS TIME.
--- NOTE | 2016-12-20 10:44 | NUR ---
SLEEPING WITH RESP EASY.CL IN REACH.BED INFLATED.
--- NOTE | 2016-12-20 13:33 | NUR ---
PT RESTING IN BED WITH EYES OPEN. CONTINUES TO GET OUT OF BED FOR THERAPY TODAY.
--- NOTE | 2016-12-20 15:22 | NUR ---
NUTRITION MONITORING & EVAL CHART REVIEWED, PT RESTING AT THIS TIME. TOLERATING REG MECH SOFT DIET WITH 100% INTAKE LUNCH. RD FOLLOWING
--- NOTE | 2016-12-20 19:45 | NUR ---
PT RESTING IN BED. O2 IN PLACE. MEPILEX TO BUTTOCK IS CDI. PT DENIES NEEDS. WCTM.
[2016-12-20 20:49] VITALS: BP 114/56
--- NOTE | 2016-12-20 22:12 | NUR ---
PT HS MEDS ADMINISTERED. PT DENIES NEEDS. WCTM.
--- NOTE | 2016-12-21 02:30 | NUR ---
PT RESTING, EYES CLOSED. BED LOW. CLIN REACH.
[2016-12-21 05:54] LABS: INR 3.73 (0.85-1.17); PROTIME 37.4 SECONDS (11.6-15.0)
--- NOTE | 2016-12-21 10:36 | NUR ---
DUE TO CHANGE IN MEDICAL CONDTION PATIENT DISCHARGED FROM REHAB AND ADMITTED TO ACUTE FLOOR
--- NOTE | 2016-12-21 11:00 | NUR ---
LYING ON SIDE.FAMILY AT BEDSIDE.PLAN TO TRANSFER TO ACUTE CARE.DENIES NEEDS AT PRESENT.
--- NOTE | 2016-12-21 12:27 | NUR ---
REPORT REC'D FROM CLARITA RASHID. ROOM READY AND AWAITING PT ARRIVAL.
== END 2016-12-21 14:44 | disposition short-term general hospital (02) | DRG 64 ==
LOC: D.REHAB 18:40
PROVIDERS: ADMIT Emergency Medicine
DX: I63.9 Cerebral infarction, unspecified (principal); J96.22 Acute and chronic respiratory failure with hypercapnia; J96.21 Acute and chronic respiratory failure with hypoxia; J44.1 Chronic obstructive pulmonary disease with (acute) exacerbation; C34.90 Malignant neoplasm of unspecified part of unspecified bronchus or lung; C79.31 Secondary malignant neoplasm of brain; R53.1 Weakness; R13.13 Dysphagia, pharyngeal phase; I10 Essential (primary) hypertension; J39.8 Other specified diseases of upper respiratory tract

== ENCOUNTER 2016-12-21 12:43 | Inpatient (IN) | payer MEDICARE ==
[~2016-12-21] VITALS: Ht 162.6 cm; Wt 62.6 kg
--- NOTE | 2016-12-21 12:51 | NUR ---
PT REC'D TO ROOM VIA BED. AAOX4. L CHEST PORT ALREADY ACCESSED. DRESSING CDI. LUNG SOUND CLEAR AND EQUAL TO UPPER LOBES BILAT. ABSENT TO RLL. INSPIRATORY AND EXPIRATORY WHEEZES NOTED TO RML. BOWEL SOUNDS ACTVIE X4 QUADRANTS. WEAKNESS NOTED TO R SIDE TO UE AND LE. 2CM X 3CM BLACK ESCHAR NOTED TO L BUTTOCK. X2 STAGE 2 TO R BUTTOCK. CURRENTLY ON 3L O2 VIA NC. FRESH WATER PROVIDED. ON 1ST STEP OVERLAY MATTRESS. REPOSITIONED UP IN BED. BLANKET PROVIDED. BED LOW, CALL LIGHT IN REACH, DENIES NEEDS. CPOC.
[2016-12-21 14:00] LABS: ALBUMIN 1.3 g/dL (3.4-5.0); ALKALINE PHOSPHATASE 293 U/L (46-116); ALT (SGPT) 34 U/L (10-68); BILIRUBIN - TOTAL 0.77 mg/dL (0.2-1.3); CALC OSMOLALITY 267 mosm/kg (275-300); CALCIUM 9.6 mg/dL (8.5-10.1); CARBON DIOXIDE 25.9 mmol/L (21.0-32.0); CHLORIDE - SERUM 96 mmol/L (98-107); CREATININE - SERUM 0.7 mg/dL (0.6-1.3); GLUCOSE 165 mg/dL (74-106); POTASSIUM - SERUM 3.6 mmol/L (3.5-5.1); PROTEIN - SERUM 7.4 g/dL (6.4-8.2); SODIUM 130 mmol/L (136-145); UREA NITROGEN 21 mg/dL (7-18); eGFR NON AFRICAN AMERICAN 90 mL/min (90-120)
[2016-12-21 14:03] LABS: HEMATOCRIT 30.4 % (36.0-48.0); HEMOGLOBIN 9.8 g/dL (12-16); MCH 29.8 pg (26.0-34.0); MCHC 32.2 g/dL (31.0-37.0); MCV 92.4 fL (80.0-100.0); MEAN PLATELET VOLUME 10.4 fL (7.4-10.4); PLATELET COUNT 263 10x3/uL (130-400); RBC 3.29 10x6/uL (4.00-5.40); RDW 16.7 % (11.5-14.5); WBC 37.5 10x3/uL (4.8-10.8)
--- NOTE | 2016-12-21 14:09 | NUR ---
SPOKE WITH DR. CALDERON. UPDATE PROVIDED.
[2016-12-21 14:55] LABS: NEUTROPHILS 91 % (40-80)
[2016-12-21 14:58] LABS: BASOPHILS 0 % (0-2); LYMPHOCYTES 6 % (15-50); MONOCYTES 3 % (2-11)
[2016-12-21 15:01] LABS: INR 4.05 (0.85-1.17); PLATELET ESTIMATE NORMAL
[2016-12-21 19:00] VITALS: BP 117/69
--- NOTE | 2016-12-21 20:14 | NUR ---
PATIENT RESTING IN BED WITH YORDY, RT BEDSIDE AND DENIES NEEDS AT THIS TIME. BED IN LOWEST POSITION AND CALL LIGHT WITHIN REACH. ENCOURAGED THE PATIENT TO CALL IF SHE HAS NEEDS.
[2016-12-21 20:31] VITALS: BMI 23.7
[2016-12-22] VITALS: BP 117/65
[2016-12-22 00:30] LABS: APPEARANCE CLEAR (CLEAR); BILIRUBIN NEGATIVE (NEGATIVE); COLOR DK YELLOW (YELLOW); GLUCOSE 100 mg/dL (NEGATIVE); KETONE NEGATIVE (NEGATIVE); LEUKOCYTE ESTERASE 1+ (NEGATIVE); NITRITE NEGATIVE (NEGATIVE); PROTEIN 2+ mg/dL (NEGATIVE)
[2016-12-22 00:31] LABS: BACTERIA FEW /hpf (NONE SEEN); EPITHELIAL CELLS 0-5 /hpf (0-5); RED CELLS - URINE 0-5 /hpf (0-5); WHITE CELLS - URINE 0-5 /hpf (0-5)
[2016-12-22 04:00] VITALS: BP 122/65
[2016-12-22 06:13] LABS: BASOPHILS 0.1 % (0-2); EOSINOPHILS 0 % (0-7); HEMATOCRIT 30.1 % (36.0-48.0); HEMOGLOBIN 9.5 g/dL (12-16); LYMPHOCYTES 3.6 % (15-50); MCH 29.1 pg (26.0-34.0); MCHC 31.6 g/dL (31.0-37.0); MCV 92.3 fL (80.0-100.0); MEAN PLATELET VOLUME 10.6 fL (7.4-10.4); MONOCYTES 2.2 % (2-11); NEUTROPHILS 91.1 % (40-80); PLATELET COUNT 268 10x3/uL (130-400); RBC 3.26 10x6/uL (4.00-5.40); RDW 16.5 % (11.5-14.5); WBC 39.9 10x3/uL (4.8-10.8)
[2016-12-22 06:32] LABS: ALBUMIN 1.2 g/dL (3.4-5.0); ALKALINE PHOSPHATASE 294 U/L (46-116); ALT (SGPT) 29 U/L (10-68); CALC OSMOLALITY 274 mosm/kg (275-300); CARBON DIOXIDE 31.1 mmol/L (21.0-32.0); CHLORIDE - SERUM 97 mmol/L (98-107); CREATININE - SERUM 0.6 mg/dL (0.6-1.3); GLUCOSE 164 mg/dL (74-106); POTASSIUM - SERUM 3.9 mmol/L (3.5-5.1); PROTEIN - SERUM 7.3 g/dL (6.4-8.2); SODIUM 135 mmol/L (136-145); UREA NITROGEN 16 mg/dL (7-18); eGFR NON AFRICAN AMERICAN > 90 mL/min (90-120)
[2016-12-22 07:18] LABS: INR 3.91 (0.85-1.17); PROTIME 38.8 SECONDS (11.6-15.0)
--- NOTE | 2016-12-22 07:30 | NUR ---
PT REC'D FROM HILDA GRANGER. RESTING IN BED WITH EYES CLOSED. EASILY AROUSED. ISIS VILL[place]OB[place], AT BEDSIDE OBTAINING AT VS. VSS. AAOX4. PT WHISPERING WHEN SPEAKING. NO COMPLAINTS OF PAIN. BILAT WHEEZES NOTED TO UPPER LOBES AND RML. ABSENT TO RLL. BED LOW, CALL LIGHT IN REACH, DENIES NEEDS. CPOC.
[2016-12-22 08:44] VITALS: BP 121/66
--- NOTE | 2016-12-22 10:29 | NUR ---
Patient Name: EDGAR HOUGH Admission Status: Elective Accout number: [id number] Admission Date: 12-21-2016 : 1955 Admission Diagnosis: Attending: GAGANDEEP Current LOS: 1 Anticipated DC Date: Planned Disposition: Primary Insurance: MEDICARE A & B Discharge Planning Comments: CM met with patient to assess and discuss discharge planning needs. Patient currently lives home alone in [place], but her plan is to go home to her brother's (Flo & José Luis Hough) house. She has an elevated toilet seat, oxygen, shower chair, and walker at home. She stated that she does her medications at home and is independent. We had a lengthy conversation about her wishes. I explained to her that her daughter (Vane) had called me and wanted to have her mom be discharged to her and also the possibility of transferring to [facility]. The patient does NOT want to go to [facility] or go to the daughters house. She stated that her daughter drinks and she does not want to be around that. She gave me permission to call her daughter and explain to her what her wishes are. She is afraid of making her daughter mad. She also gave me permission to call her sister in law José Luis and discuss her care with her. I called José Luis and discussed the patients wishes. José Luis stated that she would talk to her and see what he thought. José Luis asked about Hospice and when I asked Ms Hough about hospice, she avoided the question. She said that Dr Dubois asked if she had her affairs in order, but also talked about Radiation. Patient was going to wait to see how PT went and talk to Dr Dubois again. CM will continue to follow and assist with any plans needed. PCP: Ifeanyi Pharmacy: [facility] José Luis (sister in law) [phone] Vane Gallagher (Daughter) [phone] News Assignment Editor: Pastora Douglas * Is the patient Alert and Oriented? Yes 0 * PCP IFEANYI 0 * Pharmacy [facility] 0 * Preadmission Environment Home Alone 0 * ADLs Independent 0 * Equipment Glucometer Oxygen Shower Chair Walker 0 * List name and contact numbers for known caregivers / representatives who currently or will assist patient after discharge: JOSÉ LUIS (SISTER IN LAW) 0 * Community resources currently utilized None 0 * Additional services required to return to the preadmission environment? Yes 0 * Can the patient safely return to the preadmission environment? No 0 * Has this patient been hospitalized within the prior 30 days at any hospital? No 0 Grand Total: 0
--- NOTE | 2016-12-22 12:35 | NUR ---
PT LAYING FLAT IN BED WITH NO VISABLE SIGNS OF PAIN OR DISCOMFORT AT THIS TIME. PT HAS NO COMPLAINTS. BED IN LOW POSITION AND CALL LIGHT WITHIN REACH. WILL CONTINUE TO MONITOR.
[2016-12-22 13:37] VITALS: BP 104/60
[2016-12-22 13:50] LABS: CKMB 3.7 U/L (0.0-3.6); CREATINE KINASE 22 UL (21-215); TROPONIN-I 0.045 ng/mL (0.000-0.060)
[2016-12-22 14:00] VITALS: Ht 162.6 cm; Wt 62.6 kg
[2016-12-22 16:35] VITALS: BP 110/68
--- NOTE | 2016-12-22 20:00 | NUR ---
PATIENT RESTING IN BED AND REQUESTED PAIN MEDICATION WHEN IT IS DUE. BED IN LOWEST POSITION AND CALL LIGHT WITHIN REACH. ENCOURAGED THE PATIENT TO CALL IF SHE HAS FURTHER NEEDS.
[2016-12-22 21:03] LABS: CKMB 3.7 U/L (0.0-3.6); CREATINE KINASE 27 UL (21-215); TROPONIN-I 0.038 ng/mL (0.000-0.060)
[2016-12-22 21:27] VITALS: BP 111/68
[2016-12-23] VITALS: BP 119/67
[2016-12-23 02:50] LABS: INR 3.48 (0.85-1.17); PROTIME 35.4 SECONDS (11.6-15.0)
[2016-12-23 03:02] LABS: CKMB 3.8 U/L (0.0-3.6); CREATINE KINASE 23 UL (21-215)
[2016-12-23 03:10] LABS: TROPONIN-I 0.085 ng/mL (0.000-0.060)
[2016-12-23 04:00] VITALS: BP 130/70
[2016-12-23 04:46] LABS: BASOPHILS 0.1 % (0-2); EOSINOPHILS 0 % (0-7); HEMOGLOBIN 8.8 g/dL (12-16); IMMATURE GRANULOCYTES 3.2 % (0-5); LYMPHOCYTES 3.2 % (15-50); MCH 29.2 pg (26.0-34.0); MCHC 31.4 g/dL (31.0-37.0); MEAN PLATELET VOLUME 10.3 fL (7.4-10.4); MONOCYTES 2.4 % (2-11); NEUTROPHILS 91.1 % (40-80); PLATELET COUNT 247 10x3/uL (130-400); RBC 3.01 10x6/uL (4.00-5.40); RDW 16.6 % (11.5-14.5); WBC 38.8 10x3/uL (4.8-10.8)
[2016-12-23 07:45] VITALS: BP 111/74
--- NOTE | 2016-12-23 09:24 | NUR ---
PT SEEN THIS AM. LYING ON RIGHT SIDE. DRESSINGS TO BILAT BUTTOCK SATURATED. CALL PLACED TO WOUND CARE NURSE FOR ORDERS. LUNGS CLEAR BILAT. OXYGEN AT 3LNC. IST STEP OVERLAY. PAIN PILL GIVEN FOR DISCOMFORT. CALL LIGHT IN REACH
--- NOTE | 2016-12-23 10:20 | NUR ---
Wound Care Pt has an unstageable pressure injury on her left sacral area measuring 7cm x 5cm it is covered with black eschar. Edges are yellow slough. There is a stage 3 pressure injury on the right side of sacrum measuring 2cm x 1cm. The wound bed is yellow slough. Santyl ointment is being used for treatment. Wound care will continue to monitor.
[2016-12-23 12:08] VITALS: BP 117/63
--- NOTE | 2016-12-23 14:56 | NUR ---
CM met with patient and further discuss patients options. Patient states that she has changed her mind and plans to discharge home to her daughters house. She is NOT thinking about Hospice . She would like to have home health, PT and any other help she can have at her daughters house in [place]. CM will continue to follow and assist.
[2016-12-23 15:41] VITALS: BP 109/58
[2016-12-23 20:00] VITALS: BP 129/76
--- NOTE | 2016-12-23 22:20 | NUR ---
PATIENT RESTING IN BED AND DENIES NEEDS AT THIS TIME. ADMINISTERED MEDS PER ORDERS AND COMPLETED ASSESSMENT. BED IN LOWEST POSITION AND CALL LIGHT WITHIN REACH. ENCOURAGED THE PATIENT TO CALL IF SHE HAS NEEDS.
[2016-12-24] VITALS: BP 125/75
[2016-12-24 04:00] VITALS: BP 115/76
[2016-12-24 04:34] LABS: BASOPHILS 0.1 % (0-2); EOSINOPHILS 0 % (0-7); HEMATOCRIT 27.5 % (36.0-48.0); HEMOGLOBIN 8.8 g/dL (12-16); IMMATURE GRANULOCYTES 4.7 % (0-5); LYMPHOCYTES 3.1 % (15-50); MCH 29.8 pg (26.0-34.0); MCV 93.2 fL (80.0-100.0); MEAN PLATELET VOLUME 10.6 fL (7.4-10.4); MONOCYTES 2.4 % (2-11); NEUTROPHILS 89.7 % (40-80); PLATELET COUNT 274 10x3/uL (130-400); RBC 2.95 10x6/uL (4.00-5.40); RDW 16.7 % (11.5-14.5)
[2016-12-24 04:43] LABS: INR 2.21 (0.85-1.17); PROTIME 24.6 SECONDS (11.6-15.0)
[2016-12-24 04:45] LABS: ALBUMIN 1.1 g/dL (3.4-5.0); ANION GAP 9.4 mmol/L (8-16); BILIRUBIN - TOTAL 0.67 mg/dL (0.2-1.3); CALCIUM 9.5 mg/dL (8.5-10.1); CARBON DIOXIDE 30.6 mmol/L (21.0-32.0); CREATININE - SERUM 0.9 mg/dL (0.6-1.3); PROTEIN - SERUM 6.9 g/dL (6.4-8.2)
--- NOTE | 2016-12-24 07:30 | NUR ---
RECIEVED PT DURING WALKING ROUNDS. PT RESTING IN BED WITH COMPLAINTS OF PAIN OF A 7 ON A SCALE OF 1-10. NO MEDICATION TO BE GIVEN AT THIS TIME. ASSESSMENT DONE PER FLOWSHEET. BED IN LOW POSITION AND CALL LIGHT WITHIN REACH. WILL CONTINUE TO MONITOR.
[2016-12-24 08:09] VITALS: BP 117/65
--- NOTE | 2016-12-24 09:50 | NUR ---
DRESSING ON PTS BUTTOCK CHANGED AT THIS TIME PER ORDER. BED IN LOW POSITION AND CALL LIGHT WITHIN REACH. WILL CONTINUE TO MONITOR.
[2016-12-24 12:36] VITALS: BP 112/77
--- NOTE | 2016-12-24 13:21 | NUR ---
Nutrition Follow Up: Pt is eating 55% meal avg on a regular diet. Per Wound Care note pt with unstageable ulcer to L sacral area and stage III ulcer to R side of sacrum. +BM 12/22/16. Wt stable. Labs reviewed. Meds noted. Rec continue current diet. Will send Boogie BID to promote wound healing. RD following.
--- NOTE | 2016-12-24 15:46 | NUR ---
CM spoke in length with patient, sister in law (Pamela) Albina RODRIGUEZ & Dr. Dubois throughout the day to discuss options with patient. Nithya Buckley ([facility]) came up to hospital at [facility]'s request to speak to patient about Hospice. Patient stated that she was not interested and did not hear her out about Hospice. CM visited with patient and explained to her the options that she had. Patient did not understand that Hospice would go to her sister in law's house and provide care and that the care would be for as long as she needed and wanted. Patient felt better after the conversation and changed her mind and would like to speak with Nithya again. I called Nithya and asked her to come and visit with patient again. I spoke with the patient again and she was very thankful that she would get to go home to her brother's house and have the care that she needed. CM will continue to follow and assist as needed
[2016-12-24 15:50] VITALS: BP 120/59
--- NOTE | 2016-12-24 16:43 | NUR ---
SANTO WITH [facility] STATED THAT THE PAPER WORK WAS SIGNED AND THAT THE PATIENT STATED SHE FELT BETTER. THE DME WILL BE DELIVERED TONIGHT WITH DISCHARGE FOR TOMORROW
--- NOTE | 2016-12-24 17:39 | NUR ---
RECEIVED A CALL FROM SANTO WITH [facility]. ALL EQUIPMENT HAS BEEN ARRANGED AND DELIVERED FOR MRS. NEGRON. WILL DISCHARGE IN THE MORNING VIA AMBULANCE TO ADDRESS : [id number], [place], [address]. D/W NURSING
--- NOTE | 2016-12-24 19:00 | NUR ---
PATIENT SLEEPING ON RIGHT SIDE. HOB 15 DEGREES. RR EVEN AND UNLABORED. O2 @ 2L VIA NC. 0 S/S OF DISTRESS. LEFT PORT S/L WITH DRESSING CDI. DRESSING TO BUTTOCKS CDI. SRX2. BED LOW. CALL LIGHT WITHIN REACH.
[2016-12-24 20:00] VITALS: BP 111/67
--- NOTE | 2016-12-24 21:00 | NUR ---
ASSISTED PATIENT TO USE BED HONG. CHANGED DRESSING TO BUTTOCKS BECAUSE IT WAS SOILED. REPOSITIONED PATIENT TO LEFT SIDE. NIGHTTIME MEDICATIONS ADMINISTERED. DILAUDID GIVEN FOR PAIN.
[2016-12-25] VITALS: BP 134/74
--- NOTE | 2016-12-25 01:00 | NUR ---
DILAUDID GIVEN FOR PAIN. WILL REASSESS.
[2016-12-25 04:00] VITALS: BP 142/75
[2016-12-25 05:37] LABS: BASOPHILS 0.1 % (0-2); EOSINOPHILS 0 % (0-7); HEMATOCRIT 26.8 % (36.0-48.0); HEMOGLOBIN 8.4 g/dL (12-16); IMMATURE GRANULOCYTES 5.6 % (0-5); LYMPHOCYTES 3.1 % (15-50); MCHC 31.3 g/dL (31.0-37.0); MCV 92.4 fL (80.0-100.0); MEAN PLATELET VOLUME 10.4 fL (7.4-10.4); MONOCYTES 1.9 % (2-11); NEUTROPHILS 89.3 % (40-80); PLATELET COUNT 285 10x3/uL (130-400); RDW 16.7 % (11.5-14.5); WBC 50.5 10x3/uL (4.8-10.8)
[2016-12-25 05:43] LABS: INR 1.66 (0.85-1.17); PROTIME 19.5 SECONDS (11.6-15.0)
[2016-12-25 05:46] LABS: ALBUMIN 1.1 g/dL (3.4-5.0); ALKALINE PHOSPHATASE 278 U/L (46-116); ALT (SGPT) 29 U/L (10-68); BILIRUBIN - TOTAL 0.65 mg/dL (0.2-1.3); CALC OSMOLALITY 274 mosm/kg (275-300); CALCIUM 9.5 mg/dL (8.5-10.1); CARBON DIOXIDE 30.5 mmol/L (21.0-32.0); CHLORIDE - SERUM 98 mmol/L (98-107); CREATININE - SERUM 0.6 mg/dL (0.6-1.3); GLUCOSE 181 mg/dL (74-106); POTASSIUM - SERUM 3.9 mmol/L (3.5-5.1); SODIUM 134 mmol/L (136-145); UREA NITROGEN 17 mg/dL (7-18); eGFR NON AFRICAN AMERICAN > 90 mL/min (90-120)
--- NOTE | 2016-12-25 07:00 | NUR ---
REPORT RECIEVED ASSUMED CARE. PATIENT IN BED WITH IV INTACT. NO COMPLAINTS AT THIS TIME. CALL LIGHT WITHIN REACH.
--- NOTE | 2016-12-25 10:30 | NUR ---
PATIENT DRESSING CHANGED AT THIS TIME. COCCYX WOUND SCABBED OVER. CLEANED WITH WOUND MOSS GATHERER AND SANTYL APPLIED. RIGHT BUTTOCK WOUNDS OPEN. CLEANED WITH WOUND MOSS GATHERER AND SANTYL APPLIED. NEW DRESSING PLACED OVER WOUND. TOLERATED WITH SMALL AMOUNT OF PAIN. IV INTACT. NO COMPLAINTS. CALL LIGHT WITHIN REACH..
--- NOTE | 2016-12-25 13:00 | NUR ---
PATIENT IN BED WITH NO COMPLAINTS. IV INTACT. CALL LIGHT WITHIN REACH.
[2016-12-25] MEDS ORDERED: SANTYL30 GM TP (15:27)
[2016-12-25] MEDS ORDERED: DECADRON4 MG PO (15:29)
--- NOTE | 2016-12-25 17:13 | NUR ---
Late Entry 1530- 1720 CM received a telephone call regarding discharge home with hospice. TC to [facility] at [phone]. Left message with service for on-call nurse to advise of discharge and confirm readiness. Second phone call to hospice provider as the primary nurse, Sara, could not reach family to advise of discharge. Received CB from on-call nurse. All DME is in place. Hospice is ready. Primary nurse and coordinator will attempt to contact family before discharging patient to home by ambulance.
--- NOTE | 2016-12-25 17:30 | NUR ---
PATIENT DRESSING TO BUTTOCKS CHANGED AGAIN EARLIER. PATIENT TOLERATED WITH SMALL AMOUNT OF PAIN. IV INTACT. CALL LIGHT WITHIN REACH.
--- NOTE | 2016-12-25 17:53 | NUR ---
9116 HUONG received telephone call from Dianelys with [facility]. The sister in law called and said she could not obtain the patient's medication tonight. The patient cannot be safely discharged home tonight. Will call [facility] in the AM and the family to confirm readiness. HUONG called and spoke with primary nurse, Sara. Dianelys, the hospice nurse, is to call and speak with Sara.
--- NOTE | 2016-12-25 18:04 | NUR ---
SPOKE WITH [facility] NURSE AT THIS TIME. STATED PATIENT WILL NOT BE LEAVING UNTIL AM BECAUSE SHE CAN NOT GET HER MEDS UNTIL AM FOR TONIGHT. HOSPICE NURSE NOTIFIED FAMILY.
[2016-12-25 20:00] VITALS: BP 120/72
[2016-12-26] VITALS: BP 143/75
[2016-12-26 04:00] VITALS: BP 142/78
[2016-12-26 06:16] LABS: BASOPHILS 0.1 % (0-2); EOSINOPHILS 0 % (0-7); HEMOGLOBIN 8.6 g/dL (12-16); IMMATURE GRANULOCYTES 5.6 % (0-5); MCH 29.1 pg (26.0-34.0); MCHC 31.9 g/dL (31.0-37.0); MCV 91.2 fL (80.0-100.0); MEAN PLATELET VOLUME 10.2 fL (7.4-10.4); MONOCYTES 2.5 % (2-11); NEUTROPHILS 88.8 % (40-80); PLATELET COUNT 277 10x3/uL (130-400); RBC 2.96 10x6/uL (4.00-5.40); RDW 16.7 % (11.5-14.5)
[2016-12-26 06:19] LABS: WBC 60.3 10x3/uL (4.8-10.8)
[2016-12-26 06:28] LABS: ALBUMIN 1.1 g/dL (3.4-5.0); ALKALINE PHOSPHATASE 297 U/L (46-116); ALT (SGPT) 32 U/L (10-68); BILIRUBIN - TOTAL 0.78 mg/dL (0.2-1.3); CALC OSMOLALITY 269 mosm/kg (275-300); CALCIUM 9.6 mg/dL (8.5-10.1); CARBON DIOXIDE 30.2 mmol/L (21.0-32.0); CHLORIDE - SERUM 95 mmol/L (98-107); CREATININE - SERUM 0.7 mg/dL (0.6-1.3); GLUCOSE 178 mg/dL (74-106); POTASSIUM - SERUM 3.8 mmol/L (3.5-5.1); PROTEIN - SERUM 7.2 g/dL (6.4-8.2); SODIUM 132 mmol/L (136-145); UREA NITROGEN 16 mg/dL (7-18); eGFR NON AFRICAN AMERICAN 90 mL/min (90-120)
[2016-12-26 06:32] LABS: INR 1.59 (0.85-1.17); PROTIME 18.9 SECONDS (11.6-15.0)
[2016-12-26 08:04] VITALS: BP 124/64
--- NOTE | 2016-12-26 09:38 | NUR ---
PATIENT RECIEVED DISCHARGE INSTRUCTIONS. VERBALIZED UNDERSTANDING. PAIN MED GIVEN. EMS HERE TO TAKE PATIENT HOME. PATIENT AND PERSONAL BELONGINGS DOWN TO AMBULANCE VIA STRETCHER BY EMS.
--- NOTE | 2016-12-27 09:15 | NUR ---
LATE ENTRY: REC. PHONE CALL FROM JOSÉ LUIS NEGRON AND SHE STATED EVERYTHING HAD BEEN SET UP FOR EDGAR AND SHE WAS FINE. HER BOTTOM DENTURES WERE PUT IN A BAG AND THE AMBULANCE STAFF PICKED THEM UP.
== END 2016-12-26 09:40 | disposition home health service (06) | DRG 181 ==
LOC: D.SDCHOLD 12:43 → D.MS 12:43
PROVIDERS: Family Medicine; ADMIT Family Medicine
DX: C34.90 Malignant neoplasm of unspecified part of unspecified bronchus or lung (principal); C79.31 Secondary malignant neoplasm of brain; J39.8 Other specified diseases of upper respiratory tract; E11.9 Type 2 diabetes mellitus without complications; I10 Essential (primary) hypertension; J44.9 Chronic obstructive pulmonary disease, unspecified; F32.9 Major depressive disorder, single episode, unspecified; F41.9 Anxiety disorder, unspecified; D64.81 Anemia due to antineoplastic chemotherapy; J40 Bronchitis, not specified as acute or chronic; E86.0 Dehydration; Z79.01 Long term (current) use of anticoagulants